=== PATIENT | male | born 1935 | race Hispanic/Latino ===

== ENCOUNTER 2017-08-07 08:17 | Observation (INO) | payer MEDICARE, MEDICAID ==
[2017-08-07 09:20] LABS: #Eosinphils 0.1 thou/uL (0.0-0.7); #Lymphocytes 1.6 thou/uL (1.20-3.40); #Monocytes 0.7 thou/uL (0.11-0.59); #Neutrophils 7.9 thou/uL (1.40-6.50); %Basophils 0.2 % (0.0-1.0); %Eosinophils 0.6 % (0.0-10.0); %Lymphocytes 15.2 % (21.0-51.0); %Monocytes 6.7 % (0.0-10.0); %Neutrophils 77.3 % (42.0-75.0); Hemoglobin 11.4 g/dL (14.0-18.0); Mean Corpuscular Hemoglobin 28.5 pg (27.0-31.0); Mean Platelet Volume 6.8 fL (7.4-10.4); Platelet Count 416 thou/uL (130-400); RBC Distribution Width 13.8 % (11.5-14.5); White Blood Cell (WBC) Count 10.2 thou/uL (4.8-10.8)
[2017-08-07] MEDS ORDERED: Morphine 4 MG/ML VIAL ONE (09:20)
[2017-08-07] MEDS ORDERED: Adacel (T-DAP) 0.5 ML VIAL ONE (09:21)
[2017-08-07 09:47] LABS: ALT (SGPT) 7 U/L (8-55); AST (SGOT) 13 U/L (5-34); Albumin 3.7 g/dL (3.4-4.8); Alcohol Less than 10 mg/dL (Less than 10); Alkaline Phosphatase 85 U/L (40-150); Anion Gap 16 mmol/L (10-20); BUN (Urea Nitrogen) 41 mg/dL (8.4-25.7); Bilirubin, Total 0.3 mg/dL (0.2-1.2); Calc. Creatinine Clearance 0 mL/min (70-130); Calcium 9.6 mg/dL (7.8-10.44); Carbon Dioxide 21 mmol/L (23-31); Chloride 103 mmol/L (98-107); Estimated GFR-MDRD 28; Globulin 4.4 g/dL (2.4-3.5); Glucose 125 mg/dL (83-110); INR-International Normal Ratio 1.1; Lipase 7 U/L (8-78); Potassium 4.3 mmol/L (3.5-5.1); Protein, Total 8.1 g/dL (5.8-8.1); Prothrombin Time 14.5 SEC (12.0-14.7); Sodium 136 mmol/L (136-145)
--- NOTE | 2017-08-07 09:54 | CT ---
CT OF THE BRAIN WITHOUT CONTRAST: Date: 08/07/17 INDICATION: History of fall with neck pain and laceration. FINDINGS: There is a right frontal scalp contusion. There is generalized cerebral and cerebellar atrophy. There is mild chronic small vessel white matter ischemic change. Septum pellucidum and third ventricle are midline. No acute infarct, hemorrhage, or hydrocephalus present. Skull appears intact. IMPRESSION: 1. Right frontal scalp contusion. 2. No acute intracranial abnormality. 3. Generalized cerebral and cerebellar atrophy, appears similar to comparison dated 10/27/14. 4. Stable mild chronic small vessel white matter ischemic change. POS: [facility]
[2017-08-07] MEDS ORDERED: Lidocaine 1% w/Epinephrine 1:100K 20 ML VIAL ONE (10:34)
--- NOTE | 2017-08-07 10:41 | CT ---
CT CERVICAL SPINE PERFORMED WITHOUT CONTRAST ENHANCEMENT: HISTORY: Neck pain status post fall. 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 There are irregular endplate changes, whic h are particularly pronounced at the C5-C6 and C6-C7 levels. Lesser changes and marked disk narrowin g are seen at C3-C4, C4-C5, and C6-C7. There is moderate anterolisthesis of C6 on C7 of 4 to 5 mm. There are marked degenerative facet changes present. In reviewing old CT of the facial bone films fr 10/27/2014, the patient had cystic change of the base of the dens and a cortical defect along the lateral margin. This is now a complete fracture of the dens, which is essentially nondisplaced. Thi s could be acute in nature, although it could have been a gradual evolution from the 2014 study, but it would have to be presumed to be related to acute trauma. IMPRESSION: 1. Fracture of the base of the dens, which is essentially nondisplaced. 2. 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 Findings telephoned to Dr. Martinez at 1000 hours. CODE CR POS: [facility]
--- NOTE | 2017-08-07 10:51 | CT ---
CT CHEST AND ABDOMEN AND PELVIS AND THORACIC SPINE AND LUMBAR SPINE PERFORMED WITH CONTRAST: HISTORY: Diffuse pain status post fall. FINDINGS: CHEST: The lungs are clear of any infiltrative process. No pneumothorax or rib fractures. Deformit y to both shoulders is consistent with some arthropathy type change with changes that would suggest b ilateral chronic rotator cuff tears. Mediastinal structures appears unremarkable. Coronary artery calcifications are seen. No mediastina l hematoma. No significant mediastinal or hilar adenopathy. ABDOMEN: The liver and spleen appear unremarkable. The pancreas shows no evidence of mass or ductal dilatation. Some questionable minimal sludge within the gallbladder. The right and left adrenal glands are normal. There is cortical atrophy and lobulation to both kidne ys. No evidence of any acute injury. The aorta is tortuous but not aneurysmal. No signs of any bow el wall injury. PELVIS: The bladder is distended. No free fluid, adenopathy, or mass. No fractures of the bony pel talon ring. THORACIC SPINE: Arthritic changes. No acute process. LUMBAR SPINE: Arthritic changes and grade 1 spondylolisthesis of L5 on S1. No acute changes. IMPRESSION: No acute findings of chest, abdomen, or pelvis. Incidental findings as noted above. Findings telephoned to Dr. Martinez at 1005 hours. CODE CR POS: [facility]
[2017-08-07 11:10] LABS: Bilirubin Negative (Negative); Blood, Urine Trace (Negative); Glucose, Urine (Dipstick) Negative (Negative); Leukocyte Negative (Negative); Nitrite Negative (Negative); Protein, Urine (Dipstick) 100 mg/dL (Neg-Trace); Urobilinogen 0.2 mg/dL (0.2-1.0)
[2017-08-07 11:13] LABS: Clarity Clear (Clear)
[2017-08-07 11:21] LABS: Bacteria/HPF None Seen HPF (None Seen); Hyaline Casts/LPF NONE SEEN LPF (0-3 Hyaline); RBC/HPF 0-3 HPF (0-3); Squamous Epithelial 0-3 HPF (0-3); WBC/HPF 0-3 HPF (0-3)
[2017-08-07] MEDS ORDERED: Dextrose 5% in Water 1,000 ML IV PRN (11:33)
[2017-08-07] MEDS ORDERED: Ondansetron ODT 4 MG TAB PO PRN (11:33)
[2017-08-07] MEDS ORDERED: Dextrose 50% Abboject 50 ML SYRINGE SLOW IVP PRN (11:33)
[2017-08-07] MEDS ORDERED: Ondansetron PF 4 MG/2 ML Vial IVP PRN (11:33)
[2017-08-07] MEDS ORDERED: ISOVUE-370 76%-LOCM 1 ML ONE (11:40)
[2017-08-07] MEDS: Acetaminophen 1,000 MG in Premix Bag 1 BAG IVPB SCH ×3 (13:22→23:20)
--- NOTE | 2017-08-07 13:23 | CON ---
DATE OF CONSULTATION: 08/07/2017 REASON FOR CONSULTATION: Odontoid fracture. HISTORY OF PRESENT ILLNESS: Mr. Ronnie Jacobs is an 81-year-old gentleman whose family is worri ed about his general state of health and safety at home who had a fall and was found down. He was br ought to the emergency department by family complaining of neck pain and CT examination revealed angu lated, but nondisplaced odontoid fracture. Previous imaging in 2014 showed a cystic degeneration of the odontoid and the fracture is through that area of weakness. Neurosurgery was consulted, but the neurological examination felt to be normal. As I meet Mr. Jacobs, he is in the general surgical floor. His daughter and other family members a re in the room with him. I speak to Mr. Jacobs. He is unaware of the day today or the month. He does not know the year. He is awake and converses. He speaks in sentences. He can carry on conversation that is appropriate. His receptive and expressive language function are normal. His cognitive function seems diminished and this is the reason causing his family to be con cerned about him chronically. His cranial nerves are working well today. He does not have any signi ficant dysmetria with alternating rapid motions. He has generalized atrophy of muscles throughout an d some generalized weakness, but no focal radicular weakness. No lateralizing weakness. There is no lateralizing loss of sensation. He has no neglect. Reflexes are brisk. PAST MEDICAL HISTORY: Hypertension, renal insufficiency, hypothyroidism. PAST SURGICAL HISTORY: Prostatectomy. MEDICATIONS: Metoprolol, levothyroxine, hydrocodone/acetaminophen, and mirtazapine. ALLERGIES: No known drug allergies. SOCIAL HISTORY: The patient lives alone. Family is worried about his living condition. He denies d rug use or smoking. He had alcohol abuse in the past. FAMILY HISTORY: There is no family history of osteoporosis in males or predisposition to fractures. REVIEW OF SYSTEMS: There is some right upper quadrant abdominal pain. There is a laceration on the forehead that has been closed. There is some forehead pain and neck pain. PHYSICAL EXAMINATION: VITAL SIGNS: Blood pressure was controlled in the emergency department. He came in with a blood pre ssure of 200, it is now 186/81, his pulse is 83, his temperature is 97.6. He is breathing 20 times a minute, satting 92% on room air. NEUROLOGIC: Ms. Jacobs's cranial nerves are intact. Visual huerta are full to confrontation. The extraocular muscles move the eyes in all directions, primary gaze without nystagmus. The face is se nsate and symmetric. Hearing is normal to finger rub bilaterally. Palate elevates in midline. The tongue protrudes in the midline. Shoulder shrug is strong. There is diffuse atrophy in various musc le groups, but has good strength against resistance. There is no lateralizing motor deficit. There is no lateralizing sensory deficit. There is no hemineglect. The reflexes are brisk. IMAGING: CT imaging of the brain is negative for hemorrhage or intracranial mass effect. CT examina tion of the cervical spine compared to the 2015 scan shows the same degenerative changes at multiple interspaces in cervical spine including 2-3 areas of spondylolisthesis resulting in some stenosis. T he new finding is that there is a fracture through the cystic degeneration of the dens at its base. This type 2 odontoid fracture is angulated posteriorly, but not translated in any degree. IMPRESSION: Type 2 odontoid fracture. PLAN: We are going to try to get this to heal without surgical intervention. Given the cystic degen eration of the odontoid, I do not believe he is a candidate for an odontoid screw at all. We are goi ng to do an operation, it would be a C1-C2 fusion, which limited his neck rotation and he would like to avoid that. We will keep him in a collar and have him come back in the office in 2 weeks for AP a nd lateral views of the cervical spine. The collar is missized. It does not fit under his chin. It is not put on appropriately. In [facility] group, it is inefficient in finding the correct collar or in teaching patient, therefore we will consult [facility] to bring a [place] J collar and a [place] collar from across the street after they have sized and they will spent time with the family teaching how to put it on and take it off. The Gila collar should be used for showers and the [place] J collar the rest of the time. I will see him in the office. During this hospitalization, please call with any new questions.
[2017-08-07 13:57] VITALS: BMI 21.7
--- NOTE | 2017-08-07 18:08 | HP ---
DATE OF ADMISSION: 08/07/2017 HISTORY OF PRESENT ILLNESS: Mr. Jacobs is an 81-year-old man who was brought to the Emergency Depa rtment by his daughter. Apparently, the patient fell from a ground level position while he was tryin g to reach out to his walker. He struck his head, but apparently suffered no loss of consciousness. He arrived to the emergency department, [place] coma scale was noted at E4, V4, M6. He was complain ing of head and neck pain. The patient was moving all extremities and following commands. Estrada wright urrently resides at an assisted living, currently with the patient's daughter. He has been falling l ately due to a progressive generalized weakness. PAST MEDICAL HISTORY: Significant for hypothyroidism, essential hypertension. SURGICAL HISTORY: Pertinent for prostatectomy. SOCIAL HISTORY: The patient has no cigarette smoking, ethanol or illicit drug abuse history. He res ides at an assisted living. PREHOSPITALIZATION MEDICATIONS: Includes duloxetine 40 mg p.o. daily, hydrocodone 7.5 mg p.o. t.i.d. , levothyroxine 50 mcg p.o. daily, metoprolol XL 25 mg p.o. b.i.d. and mirtazapine 7.5 mg p.o. at [facility]. ALLERGIES: Patient has no known drug allergies. REVIEW OF SYSTEMS: Ten point review of systems essentially unremarkable except for as stated in past medical history and chief complaint. PHYSICAL EXAMINATION: GENERAL: This reveals an 81-year-old normally developed man who is otherwise coherent and interactiv e and appears stated age. The patient appears to be in no significant acute distress at the time of my evaluation. VITAL SIGNS: Includes blood pressure 197/75, pulse 89, respiratory rate 18, temperature 98.3 degrees Fahrenheit, oxygen saturation 98% on room air. HEENT: Reveals a 3 cm right supraorbital forehead laceration which has been repaired by emergency me tere prior to my arrival. The remainder of the head is otherwise normocephalic. Pupils are equal, round, and reactive to light and accommodation. Extraocular muscles are intact bilaterally. He has no scleral icterus present. NECK: Cervical spine immobilized in a C-collar, maintaining the position due to known cervical spine injury. CHEST: Chest wall is stable. No gross deformities or step-offs present. HEART: Regular rate and rhythm, no murmurs or gallops auscultated. LUNGS: Clear to auscultation bilaterally. Breathing regular and unlabored. ABDOMEN: Soft, nontender, nondistended. Liver and spleen nonpalpable below costal margin. EXTREMITIES: Reveals 2+ radial and pedal pulses bilaterally. No ankle edema is present. NEUROLOGIC: Reveals no focal deficits present. MUSCULOSKELETAL: Reveals 4/5 muscle strength in bilateral upper and lower extremities. Thoracic and lumbar spine nontender to palpation. I have personally reviewed the CT scan of the brain which is unremarkable for any acute intracranial pathology. CT scan of the cervical spine reveals type [address] scan of the chest, abdomen, and pelvis is unremarkable for any acute intrathoracic or intraabdomin al pathology. CT scan of the thoracic and lumbar spine reveal no fractures or dislocation. CT scan of the face is unremarkable for any facial bone fractures. PERTINENT LABORATORY FINDINGS: Today includes a CBC with 10,200 white blood cells, hemoglobin 11.4, hematocrit is 35.6, platelet count is 416,000. PTT and INR noted at 37.1 seconds and 1.1 respectively. Metabolic profile: Sodium 136, potassium is 4.3, chloride is 103, bicarbonate is 21, BUN 41, creatin ine is 2.22, glucose 125. Lactic acid is 1.8, total bilirubin 0.3, AST and ALT noted at 13 and 7 res pectively. IMPRESSION: 1. Status post ground level fall. 2. A 3 cm right supraorbital forehead laceration. 3. Type 2 odontoid fracture. 4. History of essential hypertension. 5. History of hypothyroidism. PLAN: 1. Neurosurgical consultation regarding the cervical spine fracture. Cervical spine remained immobi lized in a C-collar. 2. Initiate physical and occupational therapy. 3. Case management will be asked to evaluate the patient and initiate discharge planning to include post-rehabilitation placement due to this patient's significant risk for repeated falls. The patient 's daughter who is at bedside is equally as concerned about her father's recent fall. 4. We will ask PM&R to evaluate the patient for possible inpatient rehabilitation. 5. We will monitor and control hypertension as it appears as if the patient has poorly controlled hy pertension. This may be secondary to noncompliance. 6. Above findings and plan discussed with the patient and his daughter at bedside. They both indica lexie understanding of information given.
[2017-08-07] MEDS: Famotidine 20 MG TAB PO SCH (21:59)
[2017-08-07] MEDS ORDERED: Mirtazapine 15 MG TAB PO SCH (22:30)
[2017-08-08] MEDS ORDERED: hydrALAZINE 20 MG/ML VIAL SLOW IVP PRN (03:58)
[2017-08-08] MEDS: Levothyroxine Sodium 50 MCG TAB PO SCH (06:16)
[2017-08-08] MEDS: Acetaminophen 1,000 MG in Premix Bag 1 BAG IVPB SCH ×2 (06:17→12:07)
[2017-08-08] MEDS: Tamsulosin HCl 0.4 MG CAP PO SCH (08:59)
[2017-08-08] MEDS ORDERED: Amlodipine 10 MG TAB PO SCH (09:00)
--- NOTE | 2017-08-08 11:32 | EKG ---
Test Reason : Blood Pressure : / mmHG Vent. Rate : 078 BPM Atrial Rate : 078 BPM P-R Int : 210 ms QRS Dur : 110 ms QT Int : 412 ms P-R-T Axes : 071 -44 020 degrees QTc Int : 469 ms Sinus rhythm with 1st degree A-V block Left axis deviation Minimal voltage criteria for LVH, may be normal variant Abnormal ECG Confirmed by NICOLLE Mayfield, LIONEL ([id number]), legal editor RICKEY HICKEY ([id number] on 08/08/2017 11:31:50 AM Referred By: Confirmed By:LIONEL VALVERDE M.D.
--- NOTE | 2017-08-08 14:39 | PRG ---
DATE OF SERVICE: 08/08/2017. SUBJECTIVE: This is an 81-year-old male status post mechanical fall resulting in an odontoid fracture. Hospital day 2. Neurosurgery has seen and evaluated the patient and the patient is to be treated nonoperatively at this time with a [place] J collar at all times and a [place] collar for showering. He is currently awaiting evaluation by inpatient rehabilitation, physical therapy and occupational therapy. This morning, he states his pain is controlled and he vocalized no complaint. OBJECTIVE: VITAL SIGNS: Temperature 97.5, pulse 78, respirations 16, O2 sat 98% on room air, blood pressure 123/73. GENERAL: Well-developed elderly appearing male, in no acute distress, resting in bed. HEENT: C-collar is in place. PULMONARY: Normal work of breathing. Symmetric rise. CARDIOVASCULAR: Regular rate and rhythm. GASTROINTESTINAL: Abdomen is soft, nontender, nondistended. MUSCULOSKELETAL: Moves all extremities x4. NEUROLOGIC: No focal deficit is noted. ASSESSMENT: 1. Status post mechanical fall with history of frequent falls at home or at assisted living facility. 2. Forehead laceration. 3. Odontoid fracture. 4. History of hypertension. 5. History of hypothyroidism. PLAN: Continue supportive care as ordered. Norvasc 10 mg added earlier today for SBP >180. Continue pain management as ordered. Continue to monitor. Continue PT, OT. Await evaluation from inpatient rehabilitation. Family at bedside updated on plan of care and all questions were answered. The patient was seen and evaluated with Dr. Cosby. TRAVIS
[2017-08-08] MEDS: Acetaminophen 325 MG TAB PO PRN (17:25)
[2017-08-08] MEDS: Mirtazapine 15 MG TAB PO SCH (20:22)
[2017-08-08] MEDS: Famotidine 20 MG TAB PO SCH (20:22)
[2017-08-09] MEDS ORDERED: Senokot S 8.6-50 MG TAB PO SCH (00:15)
[2017-08-09 04:43] LABS: Anion Gap 15 mmol/L (10-20); BUN (Urea Nitrogen) 43 mg/dL (8.4-25.7); Calc. Creatinine Clearance 21 mL/min (70-130); Calcium 8.8 mg/dL (7.8-10.44); Carbon Dioxide 18 mmol/L (23-31); Chloride 104 mmol/L (98-107); Estimated GFR-MDRD 27; Glucose 105 mg/dL (83-110); Magnesium 2.3 mg/dL (1.6-2.6); Phosphorus 3.6 mg/dL (2.3-4.7); Potassium 4.2 mmol/L (3.5-5.1); Sodium 133 mmol/L (136-145)
[2017-08-09] MEDS: Levothyroxine Sodium 50 MCG TAB PO SCH (05:44)
[2017-08-09] MEDS: Acetaminophen 325 MG TAB PO PRN ×2 (05:46→13:29)
[2017-08-09] MEDS ORDERED: Sodium Chloride 0.9% 500 ML IVPB SCH (07:00)
[2017-08-09] MEDS: Tamsulosin HCl 0.4 MG CAP PO SCH (08:51)
[2017-08-09] MEDS: Polyethylene Glycol 3350 17 GM Packet PO SCH (08:57)
[2017-08-09] MEDS: Senokot S 8.6-50 MG TAB PO SCH ×2 (08:59→21:56)
--- NOTE | 2017-08-09 12:10 | PRG ---
DATE OF SERVICE: 08/09/2017 SUBJECTIVE: This is an 81-year-old male status post ground level fall resulting in an odontoid fracture. This is being treated nonoperatively with a [place] J collar. He has been seen and evaluated by inpatient rehabilitation, but is awaiting bed availability. Overnight, the patient had an isolated episode of orthostatic versus vasovagal hypotension and presyncopal events. He had been started earlier in the day on Norvasc for systolic blood pressure in the 180s. Additionally, he had a low urine output overnight and received a fluid bolus. At this time, nursing staff has been asked to hold the Norvasc. Family at bedside reports that the patient has had decreased appetite. Upon my evaluation, the patient vocalized no complaints. OBJECTIVE: VITAL SIGNS: Temperature 98.2, pulse 86, respirations 14, O2 sat 98% on room air, blood pressure 146/67. GENERAL: Well-developed elderly male in no acute distress, resting in bed. HEENT: C-collar in place. PULMONARY: Normal work of breathing. Symmetric rise. CARDIOVASCULAR: Regular rate and rhythm. GASTROINTESTINAL: Abdomen is soft, nontender, nondistended. MUSCULOSKELETAL: Moves all extremities x4. NEUROLOGIC: No focal deficit noted. LABORATORY DATA: Sodium 133, potassium 4.2, chloride 104, carbon dioxide 18, BUN 43, creatinine 2.35, glucose 105, phosphorus 3.6, magnesium 2.3. ASSESSMENT: 1. Status post ground level fall with history of frequent falls. 2. Forehead laceration. 3. Odontoid fracture, nonoperative treatment at this time. 4. History of hypertension with relative hypotension and low urine output, status post additional antihypertensive. 5. History of hypothyroidism. 6. Urinary retention, present on admission. 7. Acute Kidney injury, present on admission, stable PLAN: Hold Norvasc. Fluid bolus seems to have improved urine output. Encourage p.o. intake and discussed with family at bedside. Add Ensure t.i.d. Add Megace b.i.d. Continue PT, OT. Await bed availability from inpatient rehabilitation. Flomax has been added for urinary retention. We will keep Rendon in place until the patient has Flomax for at least 2-3 days before initiating voiding trial. This will likely be done inpatient rehabilitation. Family at bedside was updated on plan of care and all questions were answered at the time of this dictation. The patient was discussed with trauma attending. TRAVIS
[2017-08-09] MEDS ORDERED: Cyclobenzaprine 10 MG TAB PO PRN (13:59)
[2017-08-09] MEDS: Megestrol Acetate 40 MG TAB PO SCH (21:56)
[2017-08-09] MEDS: Famotidine 20 MG TAB PO SCH (21:56)
[2017-08-09] MEDS: Mirtazapine 15 MG TAB PO SCH (21:57)
[2017-08-10 04:55] LABS: Anion Gap 11 mmol/L (10-20); BUN (Urea Nitrogen) 41 mg/dL (8.4-25.7); Calc. Creatinine Clearance 21 mL/min (70-130); Calcium 8.8 mg/dL (7.8-10.44); Carbon Dioxide 22 mmol/L (23-31); Chloride 105 mmol/L (98-107); Estimated GFR-MDRD 28; Glucose 106 mg/dL (83-110); Potassium 3.9 mmol/L (3.5-5.1); Sodium 134 mmol/L (136-145)
[2017-08-10] MEDS: Levothyroxine Sodium 50 MCG TAB PO SCH (05:08)
[2017-08-10] MEDS: Tamsulosin HCl 0.4 MG CAP PO SCH (08:45)
[2017-08-10] MEDS: Megestrol Acetate 40 MG TAB PO SCH (08:45)
[2017-08-10] MEDS: Senokot S 8.6-50 MG TAB PO SCH (08:46)
[2017-08-10] MEDS: Acetaminophen 325 MG TAB PO PRN (08:46)
[2017-08-10] MEDS: Polyethylene Glycol 3350 17 GM Packet PO SCH (08:46)
--- NOTE | 2017-08-10 12:50 | DIS ---
DATE OF ADMISSION: 08/07/2017 DATE OF DISCHARGE: 08/10/2017 ADMISSION DIAGNOSES: 1. Status post ground level fall. 2. Forehead laceration. 3. Odontoid fracture. 4. History of hypertension. 5. History of hypothyroidism. 6. Urinary retention status post prostatectomy. 7. Acute kidney injury on chronic kidney disease, stable. DISCHARGE DIAGNOSES: 1. Status post ground level fall. 2. Forehead laceration. 3. Odontoid fracture. 4. History of hypertension. 5. History of hypothyroidism. 6. Urinary retention status post prostatectomy. 7. Acute kidney injury on chronic kidney disease, stable. CONSULTANTS: Dr. Rosario, Neurosurgery. HOSPITAL COURSE: Ronnie Jacobs is an 81-year-old gentleman who presented to [facility] after a fall at his assisted living facility. He was evaluated and found to have the above injuries. The patient was treated nonoperatively with a C-collar per Neurosurgery recommendations. He worked with physical therapy and occupational therapy. He was evaluated by inpatient rehabilitation and accepte d for transfer on 08/10/2017. At that time, he was tolerating a general diet and was working with ph ysical therapy and pain was controlled with p.o. analgesics. Of note, upon arrival at our facility, the patient had urinary retention for which a Rendon was placed. He was started on Flomax. DISCHARGE DISPOSITION: Inpatient rehabilitation. DISCHARGE CONDITION: Fair. PHYSICAL EXAMINATION: VITAL SIGNS: Temperature 97.6, pulse 80, respirations 18, O2 saturation 98% on room air, and blood p ressure 148/68. GENERAL: Well-developed elderly male in no acute distress, resting in bed. HEENT: C-collar is in place. PULMONARY: Normal work of breathing. Symmetric rise. CARDIOVASCULAR: Regular rate and rhythm. GASTROINTESTINAL: Soft, nontender, nondistended. MUSCULOSKELETAL: Moves all extremities x4. NEUROLOGIC: No focal deficit noted. DISCHARGE INSTRUCTIONS: The patient should wear his C-collar at all times with [place] collar f or showers. He does need a voiding trial when appropriate per medical staff at the inpatient rehabil itation facility. FOLLOWUP APPOINTMENTS: The patient is to follow up with his primary care provider for hypertension, CKD and urinary retention. He should follow up with Dr. Rosario's office in approximately [address] Rosario's recommendations. He does not need to follow up with Dr. Cosby or Trauma Services formally, but may call our office with any questions. DISCHARGE MEDICATIONS: The patient was discharged on medications as documented in the electronic med ical record a list of which was provided to the accepting facility. This is merely a summary of the patient's hospitalization. For more in-depth information, please see his medical record in its entir ety.
[2017-08-10] MEDS ORDERED: Heparin 5,000 UNITS/ML VIAL SC SCH (15:00)
[2017-08-10 15:51] VITALS: BP 140/65; TEMP 98.1
== END 2017-08-10 16:15 ==
LOC: ERS 08:17 → SURG A 12:06
PROVIDERS: ADMIT Surgery; ATTEND Surgery
DX: S12.110A Anterior displaced Type II dens fracture, initial encounter for closed fracture (principal); S01.81XA Laceration without foreign body of other part of head, initial encounter; I12.9 Hypertensive chronic kidney disease with stage 1 through stage 4 chronic kidney disease, or unspecified chronic kidney disease; N18.9 Chronic kidney disease, unspecified; E03.9 Hypothyroidism, unspecified; R33.9 Retention of urine, unspecified; N17.9 Acute kidney failure, unspecified; W18.30XA Fall on same level, unspecified, initial encounter; Y99.2 Volunteer activity; Z79.899 Other long term (current) drug therapy
CPT/HCPCS: 51702; 70450; 71260; 72125; 74177; 80048 ×2; 80053; 80307; 83605; 83690; 83735; 84100; 85025; 85610; 85730; 86850; 86900; 86901; 87086; 90471; 90715; 93005; 96361; 96374; 96375 ×2; 96376 ×2; 97110 ×2; 97116; 97139 ×3; 99285; G0378 ×2; G8978; G8979; G8987; G8988; L0172; L0174; 36415; 81003; 81015; G0390; J0131; J0360; J1644; J2001; J2270; S0179

== ENCOUNTER 2017-08-14 20:32 | Inpatient (IN) | payer MEDICARE, MEDICAID ==
[2017-08-14 21:40] LABS: Hemoglobin 8.8 g/dL (14.0-18.0); Mean Corpuscular HGB CONC 32.6 g/dL (32.0-36.0); Mean Corpuscular Hemoglobin 28.6 pg (27.0-31.0); Mean Corpuscular Volume 87.8 fl (80.0-94.0); Mean Platelet Volume 7.1 fL (7.4-10.4); Platelet Count 292 thou/uL (130-400); RBC Distribution Width 14.4 % (11.5-14.5); Red Blood Cell (RBC) Count 3.08 mill/uL (4.70-6.10); White Blood Cell (WBC) Count 31.3 thou/uL (4.8-10.8)
--- NOTE | 2017-08-14 21:53 | RAD ---
CHEST ONE VIEW: 08/14/17 HISTORY: Altered mental status. FINDINGS: Enlarged cardiac silhouette. Atherosclerosis of the aorta. Pulmonary vessels and hilum are normal. Co stophrenic angles are clear. Patchy interstitial opacities are presumed to be chronic. Left lower lob e infiltrate cannot be completely excluded. There is no pneumothorax. There are degenerative changes in both shoulders. Possible calcified lymph node in the left axilla. Chronic changes involving the di stal left and right clavicle are noted. IMPRESSION: Possible left lower lobe infiltrate. Atherosclerosis. Continued surveillance. POS: [facility]
[2017-08-14 21:55] LABS: Anion Gap 17 mmol/L (10-20); BUN (Urea Nitrogen) 54 mg/dL (8.4-25.7); Calc. Creatinine Clearance 0 mL/min (70-130); Calcium 8.8 mg/dL (7.8-10.44); Carbon Dioxide 20 mmol/L (23-31); Chloride 101 mmol/L (98-107); Estimated GFR-MDRD 20; Glucose 109 mg/dL (83-110); Potassium 5.2 mmol/L (3.5-5.1); Sodium 133 mmol/L (136-145)
[2017-08-14 21:56] LABS: Lymphocytes 4 % (21-51); MDiff Complete? YES; Monocytes 7 % (0-10); Neutrophil 89 % (42-75)
[2017-08-14 21:59] LABS: Bilirubin Small (Negative); Blood, Urine Large (Negative); Clarity TURBID (Clear); Glucose, Urine (Dipstick) Negative (Negative); Leukocyte Large (Negative); Nitrite Positive (Negative); Protein, Urine (Dipstick) 300 mg/dL (Neg-Trace); Specific Gravity, Urine 1.018 (1.002-1.036); Urobilinogen 0.2 mg/dL (0.2-1.0)
[2017-08-14 22:01] LABS: Bacteria/HPF None Seen HPF (None Seen); Hyaline Casts/LPF 0-3 HYALINE CAST LPF (0-3 Hyaline); Pathc Cast-AUWi Flag 0.98 (0-2.49); Squamous Epithelial 0-3 HPF (0-3)
[2017-08-14 22:02] LABS: Yeast-AUWi Flag 76.2 (0-25.0)
[2017-08-14 22:08] LABS: RBC/HPF 21-50 HPF (0-3); Yeast-All Forms None Seen HPF (None Seen)
[2017-08-14 22:56] LABS: ALT (SGPT) Less than 7 U/L (8-55); AST (SGOT) 18 U/L (5-34); Albumin 3.2 g/dL (3.4-4.8); Alkaline Phosphatase 67 U/L (40-150); Bilirubin, Direct 0.2 mg/dL (0.1-0.3); Bilirubin, Total 0.4 mg/dL (0.2-1.2); Protein, Total 6.1 g/dL (5.8-8.1)
--- NOTE | 2017-08-14 22:57 | CT ---
CT ABDOMEN WITHOUT CONTRAST CT PELVIS WITHOUT CONTRAST 08/14/17 HISTORY: Altered mental status. COMPARISON: 08/07/17 HISTORY: Elevated white blood cell count. Evaluate for possible occult fever or infection. TECHNIQUE: Abdomen and pelvic CT are performed without IV or oral contrast. Coronal reformatted images are submi tted for interpretation. FINDINGS: ABDOMEN CT: Chronic changes in the lung bases. Heart is enlarged. There is coronary artery calcifications. Athero sclerosis of the aorta and calcification of the mitral valve are noted. Limited evaluation of the solid organs due to lack of IV contrast. Grossly no solid organ abnormality . Unremarkable gallbladder. Atrophy of the head of the pancreas. A stable appearance of the kidneys. No obstructive uropathy. No mesenteric mass, lymphadenopathy, free air or free fluid. Limited evaluation of the alimentary canal due to lack of oral contrast. No evidence of bowel obstruc tion. Ileocecal junction is normal. Colon is unremarkable. There is diverticulosis. No diverticulitis . PELVIC CT: Urinary bladder is decompressed by Rendon catheterization. No pelvic mass, lymphadenopathy, free air o f free fluid. Stable chronic appearance of the lumbar spine. No acute fractures or identified. IMPRESSION: Limited evaluation due to lack of IV and oral contrast and due to motion degradation. No obvious acut e abnormality in the abdomen or pelvis. POS: [facility]
[2017-08-14] MEDS ORDERED: cefTRIAXone\\ROCEPHIN 1 GM VIAL ONE (23:32)
[2017-08-15] MEDS ORDERED: Levofloxacin 500 mg/D5W 100 ml Premix Bag ONE (00:13)
[2017-08-15] MEDS ORDERED: Ondansetron HCl/PF 4 MG/2 ML Vial IVP PRN ×2 (00:48→06:51)
[2017-08-15] MEDS ORDERED: Ondansetron ODT 4 MG TAB SL PRN (00:48)
[2017-08-15 01:40] VITALS: BMI 22.2
[2017-08-15] MEDS ORDERED: Vancomycin HCl 1 GM in Premix Bag 1 BAG IVPB SCH (03:00)
[2017-08-15] MEDS: Acetaminophen 325 MG TAB PO PRN ×2 (03:33→18:20)
[2017-08-15] MEDS ORDERED: Chloraseptic Spray 180 ml Bottle PO PRN (06:51)
[2017-08-15] MEDS ORDERED: Sodium Chloride 0.65% Nasal 44 ML BOT EA NARE PRN (06:51)
[2017-08-15] MEDS ORDERED: Bisacodyl 10 MG SUPP PR PRN (06:51)
[2017-08-15] MEDS ORDERED: Mag-Al 1200 mg/1200 mg/30 ML UDCUP PO PRN (06:51)
[2017-08-15] MEDS ORDERED: Senokot 8.6 MG TAB PO PRN (06:51)
[2017-08-15] MEDS ORDERED: Artificial Tears 18 DROP/0.9 ML EA EYE PRN (06:51)
[2017-08-15] MEDS ORDERED: Ondansetron ODT 4 MG TAB PO PRN (06:51)
[2017-08-15] MEDS ORDERED: Milk Of Magnesia 30 ML UDCUP PO PRN (06:51)
[2017-08-15] MEDS ORDERED: Diabetic Tussin 200 MG/10 ML UDCUP PO PRN (06:51)
[2017-08-15] MEDS ORDERED: hydrALAZINE 20 MG/ML VIAL SLOW IVP PRN (06:51)
[2017-08-15] MEDS ORDERED: Loratadine 10 MG TAB PO PRN (06:51)
[2017-08-15] MEDS ORDERED: Loperamide HCl 2 MG CAP PO PRN (06:51)
[2017-08-15] MEDS ORDERED: Eucerin (Mineral Oil/Petrolatum,White) 30 gm Jar TOP PRN (06:51)
[2017-08-15] MEDS ORDERED: Cyclobenzaprine 10 MG TAB PO PRN (06:53)
[2017-08-15] MEDS: HYDROcodone/Acetaminophen 5/325 mg Tablet PO PRN ×3 (07:48→21:51)
[2017-08-15] MEDS: Senokot S 8.6-50 MG TAB PO SCH ×2 (07:49→21:39)
[2017-08-15] MEDS: Megestrol Acetate 40 MG TAB PO SCH ×2 (07:49→21:38)
[2017-08-15] MEDS: Saccharomyces boulardii 250 MG CAP PO SCH (07:49)
[2017-08-15] MEDS: Tamsulosin HCl 0.4 MG CAP PO SCH (07:49)
[2017-08-15] MEDS: Famotidine 20 MG TAB PO SCH (07:49)
[2017-08-15] MEDS: Heparin 5,000 UNITS/ML VIAL SC SCH ×2 (07:50→21:38)
[2017-08-15] MEDS: Sodium Chloride 0.9% 1,000 ML IV SCH ×2 (08:08→21:33)
--- NOTE | 2017-08-15 10:00 | PDOC.EVN ---
Event Note - Event Note Event Note: pt seen and examined bedside, discussed with family, he has acute encephalopathy, acute on chronic kidney failure, dehydration and UTI due to collado catheter. order placed and [facility] to follow
--- NOTE | 2017-08-15 11:25 | HP ---
PRIMARY CARE PHYSICIAN: Dr. Selene Huertas. REASON FOR ADMISSION: [facility] status. HISTORY OF PRESENT ILLNESS: An 81-year-old male who has history of hypertension, hypothyroi dism, benign enlargement of prostate, senile dementia as well as anxiety and depression who was recen tly admitted in our hospital on 08/07/2017. The patient was living by himself at [facility] [place] where he had mechanical fall and he injured his right side of scalp required sutur ing in the emergency room. His CT brain was negative for any acute intracranial process other than s calp contusion. He had a CT chest, abdomen and pelvis which was also negative for any acute traumati c injury and CT cervical spine showed degenerative spine disease with dens fracture, which was nondis placed, required cervical collar. During that admission, the patient was admitted under trauma team. Neurosurgeon evaluated this patient and eventually this patient was [facility]. The patient was getting confused for the last 2-3 days and patient was not able to eat or drink well enough at rehab. When the patient's daughter visited him the day before yesterday and at that time, the patient appeared completely altered. The patient was not able to recognize her, as well as other family member. He was shouting and he appeared in distress and that is why family member called par amedics and subsequently after approval from [facility] rehabilitation, the patient was transfe rred to ER. In the emergency room, this patient had routine blood test, which showed leukocytosis with a left alisha ft and the patient appeared to be dehydrated with acute on chronic kidney failure, hyponatremia, and hyperkalemia. His urinalysis was consistent with urinary tract infection. This patient had a Rendon catheter placed when he was admitted previously on 08/07/2017 and since then he has same Rendon cathet er. Unfortunately, the patient is not able to provide any history because of his completely altered, delu sional and encephalopathic. The patient's daughter is present at bedside who provided most of the hi story. REVIEW OF SYSTEMS: All review of systems tried to review with the patient, but unable to review dayami use of altered mental status and encephalopathy. ALLERGIES: No known drug allergy. CURRENT HOME MEDICATIONS: Flexeril 5 mg q.8 hours p.r.n., Cymbalta 40 mg p.o. daily, Pepcid 20 mg da ciarra, Synthroid 50 mcg p.o. daily, Megace 40 mg p.o. b.i.d., Toprol-XL 25 mg p.o. b.i.d., Remeron 7.5 mg p.o. at bedtime, Flomax 0.4 mg p.o. daily. PAST MEDICAL HISTORY: Senile dementia of Alzheimer's type, chronic kidney disease stage 3, hypertens ion, hypothyroidism, recent admission for a dens fracture, cervical spine arthritis. PAST SURGICAL HISTORY: Prostatectomy. PAST PSYCHIATRIC HISTORY: Anxiety and depression. SOCIAL HISTORY: Patient currently from [facility]. Previously, he was living at [facility]. Subsequently, the patient was living at her daughter's home. No history of to bacco, alcohol or illicit drug abuse at this point, but he has prior history of alcohol abuse. FAMILY HISTORY: No strong family history of premature coronary artery disease, stroke or cancer as p er patient's daughter. EMERGENCY ROOM COURSE: Patient was given Rocephin 1 gram, Levaquin 500 mg, and IV fluid. PHYSICAL EXAMINATION: VITAL SIGNS: On arrival, blood pressure 131/59, pulse 93, respiratory rate 20, temperature 98.0, sat uration 94% on room air, weight 77.1 kilograms. GENERAL: The patient is currently confused, delusional, no obvious acute distress. HEENT: Head is normocephalic. The patient does have suturing over scalp laceration on the right for ehead. Eyes: Pupils round, reactive to light. Extraocular muscle intact. No nystagmus. ENT: Orop harynx within normal limits, although dry mucous membranes. No pharyngeal erythema, no exudate. NECK: Cervical collar in place. No gross JVD noted. Range of motion is not tested because of recen t dens fracture. LUNGS: Clear to auscultation without any rhonchi or rales. CARDIAC: S1, S2 regular. No murmur, no gallop, no rub. ABDOMEN: Soft, bowel sounds present, nontender, nondistended. No organomegaly, no mass. Mild supra pubic discomfort noted. BACK: Examination unremarkable. No CVA tenderness. GENITALIA: Rendon catheter in place. EXTREMITIES: No edema. Good peripheral pulsation. NEUROLOGIC: He is moving all four limbs, but detailed neurological examination is not possible becau se the patient is uncooperative and encephalopathic. PSYCHIATRIC: Unable to assess at this point. SIGNIFICANT LABORATORY DATA: CBC: WBC 31.3, hemoglobin 8.8, platelet 292 with left shift. BMP: So dium 133, potassium 5.2, chloride 101, carbon dioxide 28, BUN 54, creatinine 3.04, glucose of 109, ca lcium 8.8. Lactic acid 1.2. LFT: Bilirubin 0.2, AST 18, ALT less than 7, alkaline phosphatase 67, albumin 3.2, lipase 8. Urinalysis suggestive of urinary tract infection. ASSESSMENT AND PLAN: 1. Acute metabolic encephalopathy. At this point, the patient clinically has urinary tract infectio n as well as acute on chronic kidney failure and dehydration. We will try to correct this underlying treatable cause and monitor his neurological status. If the patient improves from altered mental st atus with this treatment, then culprit would be the underlying etiology, but if he still remains conf used and delirious, then probably dementia with delirium. He does not have any focal neurological de ficit at this point. 2. Acute on chronic kidney failure, baseline chronic kidney disease stage 3. The patient appears cl inically dehydrated. He will be given IV fluid with NS and we will monitor renal function. We will avoid nephrotoxin agent. 3. Hyperkalemia, likely due to metabolic acidosis and renal insufficiency. We will repeat BMP tomor row. 4. Hyponatremia, likely due to dehydration. We will work and give him with NS at 100 mL per hour an d will repeat BMP tomorrow. 5. Sepsis with acute organ dysfunction. He is having encephalopathy, acute kidney failure with sour ce of infection is urinary tract which is related with chronic indwelling Rendon catheter. The patien t is on appropriate vancomycin, Rocephin, and Levaquin therapy. We will follow up on culture result and change antibiotic therapy accordingly. 6. Urinary tract infection related with indwelling Rendon catheter, which was placed during previous admission. We will follow up on urine culture result. Patient is kept on vancomycin, Rocephin, and Levaquin. 7. Recent dens fracture of cervical spine with routine healing. [facility]. He was evaluated by neurosurgeon during previous admission. 8. Alzheimer's dementia. Patient will need supportive care. The patient's daughter does not want t o send him back to rehab versus senior care home rather she wants to take him home with home [facility] th. 9. Degenerative joint disease of cervical spine, supportive care. 10. Hypothyroidism. Continue Synthroid 50 mcg p.o. daily. 11. Anxiety and depression. Continue Cymbalta 40 mg p.o. daily. 12. Deep venous thrombosis prophylaxis, heparin 5000 units subcu twice daily. 13. Gastrointestinal prophylaxis. Pepcid 20 mg p.o. daily. 14. Hypertension. If blood pressure permits, then we will resume Toprol-XL 25 mg p.o. b.i.d. 15. B enign enlargement of prostate with history of prostatectomy. Continue Flomax 0.4 mg p.o. daily. CODE STATUS: The patient is DNR. Patient's daughter is surrogate decision maker. Code status confi rmed with the patient's daughter. DISPOSITION AND PLAN: Most likely the patient will go to the patient's daughter's home with home [facility] when stable. Plan of care discussed with the patient's daughter and other family member at bedside.
[2017-08-15] MEDS: Mirtazapine 15 MG TAB PO SCH (21:39)
[2017-08-16 02:06] LABS: #Eosinphils 0.1 thou/uL (0.0-0.7); #Lymphocytes 1.7 thou/uL (1.20-3.40); #Monocytes 1.4 thou/uL (0.11-0.59); #Neutrophils 20.8 thou/uL (1.40-6.50); %Basophils 0.2 % (0.0-1.0); %Eosinophils 0.6 % (0.0-10.0); %Lymphocytes 7.2 % (21.0-51.0); %Monocytes 5.8 % (0.0-10.0); %Neutrophils 86.3 % (42.0-75.0); Hemoglobin 8.2 g/dL (14.0-18.0); Mean Corpuscular HGB CONC 32.5 g/dL (32.0-36.0); Mean Corpuscular Hemoglobin 29.1 pg (27.0-31.0); Mean Corpuscular Volume 89.3 fl (80.0-94.0); Mean Platelet Volume 7.1 fL (7.4-10.4); Platelet Count 260 thou/uL (130-400); RBC Distribution Width 14.4 % (11.5-14.5); Red Blood Cell (RBC) Count 2.83 mill/uL (4.70-6.10); White Blood Cell (WBC) Count 24.1 thou/uL (4.8-10.8)
[2017-08-16 02:45] LABS: Albumin 2.9 g/dL (3.4-4.8); Anion Gap 14 mmol/L (10-20); BUN (Urea Nitrogen) 49 mg/dL (8.4-25.7); BUN/Creatinine Ratio 17.19; Calc. Creatinine Clearance 16 mL/min (70-130); Calcium 8.5 mg/dL (7.8-10.44); Carbon Dioxide 19 mmol/L (23-31); Chloride 108 mmol/L (98-107); Estimated GFR-MDRD 21; Glucose 86 mg/dL (83-110); Phosphorus 3.1 mg/dL (2.3-4.7); Potassium 4.6 mmol/L (3.5-5.1); Sodium 136 mmol/L (136-145)
[2017-08-16] MEDS ORDERED: Vancomycin HCl 500 MG in Sodium Chloride 0.9% 100 ML IVPB SCH (03:00)
[2017-08-16] MEDS: Levothyroxine Sodium 50 MCG TAB PO SCH (05:49)
[2017-08-16] MEDS: Acetaminophen 325 MG TAB PO PRN ×2 (05:55→15:26)
[2017-08-16] MEDS: Saccharomyces boulardii 250 MG CAP PO SCH (08:45)
[2017-08-16] MEDS: Senokot S 8.6-50 MG TAB PO SCH ×2 (08:45→20:27)
[2017-08-16] MEDS: Famotidine 20 MG TAB PO SCH (08:45)
[2017-08-16] MEDS: Heparin 5,000 UNITS/ML VIAL SC SCH ×2 (08:45→20:26)
[2017-08-16] MEDS: Tamsulosin HCl 0.4 MG CAP PO SCH (08:45)
[2017-08-16] MEDS: Megestrol Acetate 40 MG TAB PO SCH ×2 (08:45→20:26)
--- NOTE | 2017-08-16 09:43 | PDOC.PN ---
- Subjective Encounter Start Date: 08/16/17 Encounter Start Time: 09:10 -: old records requested/rev Patient seen and examined for sepsis. No new complaints. No overnight events today he is more coherent, slept well, now eating - Objective Resuscitation Status: Resuscitation Status DNR:Do Not Resuscitate MAR Reviewed: Yes Vital Signs & Weight: Vital Signs (12 hours) Temp Pulse Resp BP Pulse Ox 08/16/17 08:00 97.9 F 99 20 148/64 H 96 08/16/17 04:00 98.4 F 98 18 152/66 H 95 I&O: 08/15/17 08/16/17 08/17/17 06:59 06:59 06:59 Intake Total 290 2010 Output Total 150 1100 Balance 140 910 Result Diagrams: 08/16/17 01:59 08/16/17 01:59 Phys Exam - Physical Examination Constitutional: NAD HEENT: PERRLA, moist MMs, sclera anicteric Neck: no nodes, no JVD, supple, full ROM cervical collar+ Respiratory: no wheezing, no rales, no rhonchi Cardiovascular: RRR, no significant murmur, no rub Gastrointestinal: soft, non-tender, no distention, positive bowel sounds Musculoskeletal: no edema, pulses present Neurological: moves all 4 limbs Lymphatic: no nodes Psychiatric: normal affect Skin: no rash, normal turgor Dx/Plan (1) Acute worsening of stage 3 chronic kidney disease Code(s): N18.3 - CHRONIC KIDNEY DISEASE, STAGE 3 (MODERATE) Status: Acute (2) Dens fracture with routine healing Code(s): S12.100D - UNSP DISP FX OF 2ND CERVCAL VERT, SUBS FOR FX W ROUTN HEAL Status: Acute (3) Encephalopathy acute Code(s): G93.40 - ENCEPHALOPATHY, UNSPECIFIED Status: Acute (4) Hyperkalemia Code(s): E87.5 - HYPERKALEMIA Status: Acute (5) Hyponatremia Code(s): E87.1 - HYPO-OSMOLALITY AND HYPONATREMIA Status: Acute (6) Physical deconditioning Code(s): R53.81 - OTHER MALAISE Status: Acute (7) Sepsis with acute organ dysfunction Code(s): A41.9 - SEPSIS, UNSPECIFIED ORGANISM; R65.20 - SEVERE SEPSIS WITHOUT SEPTIC SHOCK Status: Acute (8) UTI (urinary tract infection) Status: Acute (9) Anemia, normocytic normochromic Code(s): D64.9 - ANEMIA, UNSPECIFIED Status: Chronic (10) Anxiety and depression Code(s): F41.9 - ANXIETY DISORDER, UNSPECIFIED; F32.9 - MAJOR DEPRESSIVE DISORDER, SINGLE EPISODE, UNSPECIFIED Status: Chronic (11) DJD (degenerative joint disease) of cervical spine Code(s): M47.812 - SPONDYLOSIS W/O MYELOPATHY OR RADICULOPATHY, CERVICAL REGION Status: Chronic (12) Dementia Code(s): F03.90 - UNSPECIFIED DEMENTIA WITHOUT BEHAVIORAL DISTURBANCE Status: Chronic (13) H/O prostatectomy Code(s): Z90.79 - ACQUIRED ABSENCE OF OTHER GENITAL ORGAN(S) Status: Chronic (14) Hypothyroidism Code(s): E03.9 - HYPOTHYROIDISM, UNSPECIFIED Status: Chronic - Plan cont current plan of care, plan discussed w/ family, continue antibiotics, PT/OT * continue rocephin, levaquin and vancomycin * follow culture * continue IVF * discussed with family * pt is improving * medication reviewed as below * symptomatic treatment. Review of Systems - Review of Systems Constitutional: weakness. negative: fever, chills, sweats, malaise, other ENT: negative: Ear Pain, Ear Discharge, Nose Pain, Nose Discharge, Nose Congestion, Mouth Pain, Mouth Swelling, Throat Pain, Throat Swelling, Other Respiratory: negative: Cough, Dry, Shortness of Breath, Hemoptysis, SOB with Excertion, Pleuritic Pain, Sputum, Wheezing Cardiovascular: negative: chest pain, palpitations, orthopnea, paroxysmal nocturnal dyspnea, edema, light headedness, other Gastrointestinal: negative: Nausea, Vomiting, Abdominal Pain, Diarrhea, Constipation, Melena, Hematochezia, Other Genitourinary: negative: Dysuria, Frequency, Incontinence, Hematuria, Retention , Other Musculoskeletal: negative: Neck Pain, Shoulder Pain, Arm Pain, Back Pain, Hand Pain, Leg Pain, Foot Pain, Other Skin: negative: Rash, Lesions, Tim, Bruising, Other - Medications/Allergies Allergies/Adverse Reactions: Allergies Allergy/AdvReac Type Severity Reaction Status Date / Time No Known Allergies Allergy Unverified 08/07/17 12:08 Medications: Current Medications Acetaminophen (Tylenol) 650 mg PO Q4H PRN PRN Reason: Headache/Fever or MIld Pain Last Admin: 08/16/17 05:55 Dose: 650 mg Hydrocodone Bitart/Acetaminophen ([place] 5/325) 1 tab PO Q4H PRN PRN Reason: Moderate Pain (4-6) Last Admin: 08/15/17 21:51 Dose: 1 tab Al Hydroxide/Mg Hydroxide (Maalox) 30 ml PO Q6H PRN PRN Reason: Heartburn or Indigestion Artificial Tears (Tears Naturale) 0 drop EA EYE PRN PRN PRN Reason: Dry Eyes Bisacodyl (Dulcolax) 10 mg CA Q24H PRN PRN Reason: Constipation Cyclobenzaprine HCl (Flexeril) 5 mg PO Q8H PRN PRN Reason: Muscle Spasm Duloxetine HCl (Cymbalta) 40 mg PO DAILY [facility] Last Admin: 08/16/17 08:48 Dose: Not Given Famotidine (Pepcid) 20 mg PO DAILY [facility] Last Admin: 08/16/17 08:45 Dose: 20 mg Guaifenesin (Robitussin Sf) 200 mg PO Q4H PRN PRN Reason: Cough Heparin Sodium (Porcine) (Heparin) 5,000 units SC BID [facility] Last Admin: 08/16/17 08:45 Dose: 5,000 units Hydralazine HCl (Apresoline) 10 mg SLOW IVP Q4H PRN PRN Reason: Systolic BP > 180 Sodium Chloride (Normal Saline 0.9%) 1,000 mls @ 70 mls/hr IV .[id number] [facility] Last Admin: 08/15/17 21:33 Dose: 1,000 mls Vancomycin HCl 500 mg/ Sodium (Chloride) 100 mls @ 100 mls/hr IVPB Q2D [facility] Last Admin: 08/16/17 03:10 Dose: 100 mls Levothyroxine Sodium (Synthroid) 50 mcg PO 0600 [facility] Last Admin: 08/16/17 05:49 Dose: 50 mcg Loperamide HCl (Imodium) 2 mg PO PRN PRN PRN Reason: Diarrhea/Loose Stools Loratadine (Claritin) 10 mg PO DAILYPRN PRN PRN Reason: Sinus Symptoms Magnesium Hydroxide (Milk Of Magnesium) 30 ml PO DAILYPRN PRN PRN Reason: Constipation Megestrol Acetate (Megace) 40 mg PO BID [facility] Last Admin: 08/16/17 08:45 Dose: 40 mg Mineral Oil/White Petrolatum (Eucerin Cream) 0 gm TOP BIDPRN PRN PRN Reason: Dry Skin Mirtazapine (Remeron) 7.5 mg PO HS [facility] Last Admin: 08/15/17 21:39 Dose: 7.5 mg Miscellaneous Medication (Pharmacy To Dose) 1 each IVPB ONE PRN PRN Reason: Pharmacy to dose Stop: 08/25/17 02:20 Ondansetron HCl (Zofran Odt) 4 mg PO Q6H PRN PRN Reason: Nausea/Vomiting Ondansetron HCl (Zofran) 4 mg IVP Q6H PRN PRN Reason: Nausea/Vomiting Phenol (Chloraseptic [place] 180 Ml Bot) 0 ml PO PRN PRN PRN Reason: Sore Throat Saccharomyces Boulardii (Florastor) 250 mg PO DAILY [facility] Last Admin: 08/16/17 08:45 Dose: 250 mg Senna (Senokot) 2 tab PO HSPRN PRN PRN Reason: Constipation Senna/Docusate Sodium (Senokot S) 2 tab PO BID [facility] Last Admin: 08/16/17 08:45 Dose: 2 tab Sodium Chloride ([place] Nasal [place] 0.65%) 0 ml EA NARE QIDPRN PRN PRN Reason: Nasal Congestion Tamsulosin HCl (Flomax) 0.4 mg PO DAILY [facility] Last Admin: 08/16/17 08:45 Dose: 0.4 mg
[2017-08-16] MEDS: Sodium Chloride 0.9% 1,000 ML IV SCH ×2 (10:43→23:54)
[2017-08-16] MEDS: cefTRIAXone\\ROCEPHIN 1 GM in Sodium Chloride 0.9% 100 ML IVPB SCH (10:43)
[2017-08-16] MEDS: HYDROcodone/Acetaminophen 5/325 mg Tablet PO PRN (12:44)
[2017-08-16] MEDS: Mirtazapine 15 MG TAB PO SCH (20:27)
[2017-08-17] MEDS: HYDROcodone/Acetaminophen 5/325 mg Tablet PO PRN ×2 (00:49→13:33)
[2017-08-17 01:59] LABS: #Basophils 0.1 thou/uL (0.0-0.2); #Eosinphils 0.2 thou/uL (0.0-0.7); #Lymphocytes 1.3 thou/uL (1.20-3.40); #Neutrophils 12.5 thou/uL (1.40-6.50); %Basophils 0.3 % (0.0-1.0); %Eosinophils 1.1 % (0.0-10.0); %Lymphocytes 8.7 % (21.0-51.0); %Monocytes 6.6 % (0.0-10.0); %Neutrophils 83.3 % (42.0-75.0); Hemoglobin 8.5 g/dL (14.0-18.0); Mean Corpuscular HGB CONC 32.6 g/dL (32.0-36.0); Mean Corpuscular Hemoglobin 29.1 pg (27.0-31.0); Mean Corpuscular Volume 89.2 fl (80.0-94.0); Mean Platelet Volume 6.5 fL (7.4-10.4); Platelet Count 277 thou/uL (130-400); RBC Distribution Width 14.3 % (11.5-14.5); Red Blood Cell (RBC) Count 2.93 mill/uL (4.70-6.10)
[2017-08-17 02:17] LABS: Vancomycin, Trough 15.5 ug/mL
[2017-08-17 02:37] LABS: Albumin 2.8 g/dL (3.4-4.8); Anion Gap 16 mmol/L (10-20); BUN (Urea Nitrogen) 39 mg/dL (8.4-25.7); BUN/Creatinine Ratio 15.29; Calc. Creatinine Clearance 18 mL/min (70-130); Calcium 8.9 mg/dL (7.8-10.44); Carbon Dioxide 17 mmol/L (23-31); Chloride 110 mmol/L (98-107); Estimated GFR-MDRD 24; Glucose 81 mg/dL (83-110); Phosphorus 2.7 mg/dL (2.3-4.7); Potassium 4.1 mmol/L (3.5-5.1); Sodium 139 mmol/L (136-145)
[2017-08-17] MEDS ORDERED: Vancomycin HCl 500 MG in Sodium Chloride 0.9% 100 ML IVPB SCH (03:00)
[2017-08-17] MEDS ORDERED: Labetalol 100 MG/20 ML MDV SLOW IVP SCH (06:00)
[2017-08-17 06:13] LABS: ALT (SGPT) 7 U/L (8-55); AST (SGOT) 18 U/L (5-34); Albumin 3.2 g/dL (3.4-4.8); Alkaline Phosphatase 75 U/L (40-150); Anion Gap 18 mmol/L (10-20); BUN (Urea Nitrogen) 38 mg/dL (8.4-25.7); Bilirubin, Total 0.3 mg/dL (0.2-1.2); Calc. Creatinine Clearance 18 mL/min (70-130); Calcium 8.8 mg/dL (7.8-10.44); Carbon Dioxide 16 mmol/L (23-31); Chloride 110 mmol/L (98-107); Estimated GFR-MDRD 24; Globulin 3.1 g/dL (2.4-3.5); Glucose 94 mg/dL (83-110); Potassium 4.3 mmol/L (3.5-5.1); Protein, Total 6.3 g/dL (5.8-8.1); Sodium 140 mmol/L (136-145)
[2017-08-17 06:16] LABS: Troponin I 0.075 ng/mL (< 0.028)
[2017-08-17] MEDS: Levothyroxine Sodium 50 MCG TAB PO SCH (06:25)
--- NOTE | 2017-08-17 07:44 | RAD ---
CHEST 1 VIEW: HISTORY: Respiratory distress. COMPARISON: 08/14/17. FINDINGS: Cardiac silhouette magnified and upper limits of normal in size. Pulmonary vasculature is now slight ly engorged. Increase in patchy bibasilar infiltrates, left greater than right. Mediastinum midline with aortic calcification. Defibrillator patchy overlies the right mediastinum. No evidence of pne umothorax. Prominent degenerative changes right shoulder. IMPRESSION: 1. Pulmonary vascular congestion. 2. Increasing infiltrate left lung base. Clinical correlation regarding other signs and symptoms of left basilar pneumonitis is required. Continued radiographic followup suggested. POS: [facility]
--- NOTE | 2017-08-17 08:34 | PDOC.PN ---
- Subjective Encounter Start Date: 08/17/17 Encounter Start Time: 07:20 last night pt had code green, as he was having dyspnea and respi distress, no chest pain he moved to [facility], he has tachycardia and tachypnea - Objective Resuscitation Status: Resuscitation Status DNR:Do Not Resuscitate MAR Reviewed: Yes Vital Signs & Weight: Vital Signs (12 hours) Temp Pulse Pulse Pulse Pulse Pulse Pulse 08/17/17 07:42 99 F 99 08/17/17 06:05 99 08/17/17 05:25 160 H 138 H 161 H 162 H 121 H 08/17/17 00:35 97.3 F L 104 H Pulse Pulse Pulse Resp Resp Resp Resp 08/17/17 07:42 18 08/17/17 06:05 22 H 08/17/17 05:25 120 H 110 H 107 H 24 H 20 28 H 08/17/17 00:35 18 Resp Resp Resp Resp Resp BP BP 08/17/17 07:42 08/17/17 06:05 08/17/17 05:25 24 H 20 20 24 H 20 177/79 H 197/105 H 08/17/17 00:35 BP BP BP BP BP BP BP 08/17/17 07:42 154/71 H 08/17/17 06:05 135/71 08/17/17 05:25 197/92 H 179/94 H 182/87 H 162/82 H 139/74 138/81 08/17/17 00:35 177/79 H Pulse Ox Pulse Ox Pulse Ox Pulse Ox Pulse Ox Pulse Ox Pulse Ox 08/17/17 07:42 100 08/17/17 06:05 100 08/17/17 05:25 100 100 100 100 100 100 08/17/17 00:35 98 Pulse Ox Pulse Ox 08/17/17 07:42 08/17/17 06:05 08/17/17 05:25 100 100 08/17/17 00:35 I&O: 08/16/17 08/17/17 08/18/17 06:59 06:59 06:59 Intake Total 2009 1152 Output Total 1100 900 Balance 910 252 Result Diagrams: 08/17/17 01:52 08/17/17 05:53 Additional Labs: Accuchecks 08/17/17 05:31 POC Glucose 102 Radiology Reviewed by me: Yes (chest xray-congestion lll pneumonia) EKG Reviewed by me: Yes (tachycardia) Phys Exam - Physical Examination Constitutional: NAD HEENT: PERRLA, sclera anicteric Neck: no JVD, supple cervical collar Respiratory: wheezing present left base rales Cardiovascular: RRR, no significant murmur, no rub tachycardia Gastrointestinal: soft, non-tender, no distention, positive bowel sounds Musculoskeletal: no edema, pulses present Neurological: moves all 4 limbs Lymphatic: no nodes Psychiatric: normal affect Skin: no rash, normal turgor Dx/Plan (1) Acute worsening of stage 3 chronic kidney disease Code(s): N18.3 - CHRONIC KIDNEY DISEASE, STAGE 3 (MODERATE) Status: Acute (2) Dens fracture with routine healing Code(s): S12.100D - UNSP DISP FX OF 2ND CERVCAL VERT, SUBS FOR FX W ROUTN HEAL Status: Acute (3) Encephalopathy acute Code(s): G93.40 - ENCEPHALOPATHY, UNSPECIFIED Status: Acute (4) Hyperkalemia Code(s): E87.5 - HYPERKALEMIA Status: Acute (5) Hyponatremia Code(s): E87.1 - HYPO-OSMOLALITY AND HYPONATREMIA Status: Acute (6) Physical deconditioning Code(s): R53.81 - OTHER MALAISE Status: Acute (7) Sepsis with acute organ dysfunction Code(s): A41.9 - SEPSIS, UNSPECIFIED ORGANISM; R65.20 - SEVERE SEPSIS WITHOUT SEPTIC SHOCK Status: Acute (8) UTI (urinary tract infection) Status: Acute (9) Anemia, normocytic normochromic Code(s): D64.9 - ANEMIA, UNSPECIFIED Status: Chronic (10) Anxiety and depression Code(s): F41.9 - ANXIETY DISORDER, UNSPECIFIED; F32.9 - MAJOR DEPRESSIVE DISORDER, SINGLE EPISODE, UNSPECIFIED Status: Chronic (11) DJD (degenerative joint disease) of cervical spine Code(s): M47.812 - SPONDYLOSIS W/O MYELOPATHY OR RADICULOPATHY, CERVICAL REGION Status: Chronic (12) Dementia Code(s): F03.90 - UNSPECIFIED DEMENTIA WITHOUT BEHAVIORAL DISTURBANCE Status: Chronic (13) H/O prostatectomy Code(s): Z90.79 - ACQUIRED ABSENCE OF OTHER GENITAL ORGAN(S) Status: Chronic (14) Hypothyroidism Code(s): E03.9 - HYPOTHYROIDISM, UNSPECIFIED Status: Chronic (15) Demand ischemia Code(s): I24.8 - OTHER FORMS OF ACUTE ISCHEMIC HEART DISEASE Status: Acute (16) Left lower lobe pneumonia Code(s): J18.1 - LOBAR PNEUMONIA, UNSPECIFIED ORGANISM Status: Acute - Plan cont current plan of care, plan discussed w/ family, continue antibiotics, PT/OT , respiratory therapy * culture is negative, so will dc vancomycin * wbc is improving * continue rocephin and levaquin * renal function is now baseline * add duoneb * give one dose of lasix * DC ivf * discussed with family bedside * repeat labs tomorrow * medication reviewed as below * symptomatic treatment. Review of Systems - Review of Systems Constitutional: negative: fever, chills, sweats, weakness, malaise, other Eyes: negative: Pain, Vision Change, Conjunctivae Inflammation, Eyelid Inflammation, Redness, Other Respiratory: Cough, Shortness of Breath, SOB with Excertion. negative: Dry, Hemoptysis, Pleuritic Pain, Sputum, Wheezing Cardiovascular: negative: chest pain, palpitations, orthopnea, paroxysmal nocturnal dyspnea, edema, light headedness, other Gastrointestinal: negative: Nausea, Vomiting, Abdominal Pain, Diarrhea, Constipation, Melena, Hematochezia, Other Genitourinary: negative: Dysuria, Frequency, Incontinence, Hematuria, Retention , Other Musculoskeletal: negative: Neck Pain, Shoulder Pain, Arm Pain, Back Pain, Hand Pain, Leg Pain, Foot Pain, Other Skin: negative: Rash, Lesions, Tim, Bruising, Other - Medications/Allergies Allergies/Adverse Reactions: Allergies Allergy/AdvReac Type Severity Reaction Status Date / Time No Known Allergies Allergy Unverified 08/07/17 12:08 Medications: Current Medications Acetaminophen (Tylenol) 650 mg PO Q4H PRN PRN Reason: Headache/Fever or MIld Pain Last Admin: 08/16/17 15:26 Dose: 650 mg Hydrocodone Bitart/Acetaminophen ([place] 5/325) 1 tab PO Q4H PRN PRN Reason: Moderate Pain (4-6) Last Admin: 08/17/17 00:49 Dose: 1 tab Al Hydroxide/Mg Hydroxide (Maalox) 30 ml PO Q6H PRN PRN Reason: Heartburn or Indigestion Albuterol/Ipratropium (Duoneb) 3 ml NEB Q6H PRN PRN Reason: SOB &/or Wheezing Artificial Tears (Tears Naturale) 0 drop EA EYE PRN PRN PRN Reason: Dry Eyes Bisacodyl (Dulcolax) 10 mg [place] Q24H PRN PRN Reason: Constipation Cyclobenzaprine HCl (Flexeril) 5 mg PO Q8H PRN PRN Reason: Muscle Spasm Last Admin: 08/16/17 20:27 Dose: 5 mg Duloxetine HCl (Cymbalta) 40 mg PO DAILY [facility] Last Admin: 08/16/17 08:48 Dose: Not Given Famotidine (Pepcid) 20 mg PO DAILY [facility] Last Admin: 08/16/17 08:45 Dose: 20 mg Furosemide (Lasix) 40 mg SLOW IVP NOW [facility] Stop: 08/17/17 10:45 Guaifenesin (Robitussin Sf) 200 mg PO Q4H PRN PRN Reason: Cough Heparin Sodium (Porcine) (Heparin) 5,000 units SC BID [facility] Last Admin: 08/16/17 20:26 Dose: 5,000 units Hydralazine HCl (Apresoline) 10 mg SLOW IVP Q4H PRN PRN Reason: Systolic BP > 180 Ceftriaxone Sodium 1 gm/ (Sodium Chloride) 100 mls @ 200 mls/hr IVPB Q24HR [facility] Last Admin: 08/16/17 10:43 Dose: 100 mls Levofloxacin 750 mg/ Device 150 mls @ 100 mls/hr IVPB Q2DAYS [facility] Last Admin: 08/16/17 10:58 Dose: Not Given Levothyroxine Sodium (Synthroid) 50 mcg PO 0600 [facility] Last Admin: 08/17/17 06:25 Dose: Not Given Loperamide HCl (Imodium) 2 mg PO PRN PRN PRN Reason: Diarrhea/Loose Stools Loratadine (Claritin) 10 mg PO DAILYPRN PRN PRN Reason: Sinus Symptoms Magnesium Hydroxide (Milk Of Magnesium) 30 ml PO DAILYPRN PRN PRN Reason: Constipation Megestrol Acetate (Megace) 40 mg PO BID [facility] Last Admin: 08/16/17 20:26 Dose: 40 mg Mineral Oil/White Petrolatum (Eucerin Cream) 0 gm TOP BIDPRN PRN PRN Reason: Dry Skin Mirtazapine (Remeron) 7.5 mg PO HS [facility] Last Admin: 08/16/17 20:27 Dose: 7.5 mg Morphine Sulfate (Morphine) 2 mg SLOW IVP Q4H PRN PRN Reason: Pain Ondansetron HCl (Zofran Odt) 4 mg PO Q6H PRN PRN Reason: Nausea/Vomiting Ondansetron HCl (Zofran) 4 mg IVP Q6H PRN PRN Reason: Nausea/Vomiting Phenol (Chloraseptic [place] 180 Ml Bot) 0 ml PO PRN PRN PRN Reason: Sore Throat Saccharomyces Boulardii (Florastor) 250 mg PO DAILY [facility] Last Admin: 08/16/17 08:45 Dose: 250 mg Senna (Senokot) 2 tab PO HSPRN PRN PRN Reason: Constipation Senna/Docusate Sodium (Senokot S) 2 tab PO BID [facility] Last Admin: 08/16/17 20:27 Dose: 2 tab Sodium Chloride ([place] Nasal [place] 0.65%) 0 ml EA NARE QIDPRN PRN PRN Reason: Nasal Congestion Tamsulosin HCl (Flomax) 0.4 mg PO DAILY [facility] Last Admin: 08/16/17 08:45 Dose: 0.4 mg
[2017-08-17] MEDS ORDERED: Furosemide 40 MG/4 ML VIAL SLOW IVP SCH (08:45)
[2017-08-17] MEDS: Heparin 5,000 UNITS/ML VIAL SC SCH ×2 (09:28→20:40)
[2017-08-17] MEDS: Megestrol Acetate 40 MG TAB PO SCH ×2 (09:28→20:40)
[2017-08-17] MEDS: Famotidine 20 MG TAB PO SCH (09:28)
[2017-08-17] MEDS: Senokot S 8.6-50 MG TAB PO SCH ×2 (09:29→20:41)
[2017-08-17] MEDS: Tamsulosin HCl 0.4 MG CAP PO SCH (09:29)
[2017-08-17] MEDS: cefTRIAXone\\ROCEPHIN 1 GM in Sodium Chloride 0.9% 100 ML IVPB SCH (09:29)
[2017-08-17] MEDS: Saccharomyces boulardii 250 MG CAP PO SCH (09:29)
[2017-08-17] MEDS: Nitroglycerin 2% Ointment 1 INCH/1 GM Packet TOP SCH ×2 (13:33→20:41)
[2017-08-17] MEDS: Mirtazapine 15 MG TAB PO SCH (20:40)
[2017-08-18] MEDS ORDERED: Metoprolol Tartrate 25 MG TAB PO SCH (04:45)
[2017-08-18] MEDS: Nitroglycerin 2% Ointment 1 INCH/1 GM Packet TOP SCH ×3 (06:22→22:10)
[2017-08-18] MEDS: Levothyroxine Sodium 50 MCG TAB PO SCH (07:18)
[2017-08-18] MEDS: Heparin 5,000 UNITS/ML VIAL SC SCH ×2 (09:26→22:09)
[2017-08-18] MEDS: Famotidine 20 MG TAB PO SCH (09:26)
[2017-08-18] MEDS: Saccharomyces boulardii 250 MG CAP PO SCH (09:27)
[2017-08-18] MEDS: Tamsulosin HCl 0.4 MG CAP PO SCH (09:27)
[2017-08-18] MEDS: Megestrol Acetate 40 MG TAB PO SCH ×2 (09:27→22:09)
[2017-08-18] MEDS: Senokot S 8.6-50 MG TAB PO SCH ×2 (09:27→22:08)
--- NOTE | 2017-08-18 10:23 | PDOC.PN ---
- Subjective Encounter Start Date: 08/18/17 Encounter Start Time: 07:30 Patient seen and examined for sepsis. No overnight events - Objective Resuscitation Status: Resuscitation Status DNR:Do Not Resuscitate MAR Reviewed: Yes Vital Signs & Weight: Vital Signs (12 hours) Temp Pulse Resp BP Pulse Ox 08/18/17 07:37 99.5 F 110 H 19 171/79 H 100 08/18/17 04:00 97.9 F 116 H 28 H 140/80 100 Weight Weight 119 lb 8 oz I&O: 08/17/17 08/18/17 08/19/17 06:59 06:59 06:59 Intake Total 1152 930 Output Total 900 2700 Balance 252 -1770 Result Diagrams: 08/17/17 01:52 08/17/17 05:53 EKG Reviewed by me: Yes (nsr) Phys Exam - Physical Examination Constitutional: NAD HEENT: PERRLA, moist MMs, sclera anicteric Neck: no JVD, supple coarse sound bilateral Cardiovascular: RRR, no significant murmur, no rub Gastrointestinal: soft, non-tender, no distention, positive bowel sounds Musculoskeletal: no edema, pulses present Neurological: moves all 4 limbs Lymphatic: no nodes Psychiatric: normal affect Skin: no rash, normal turgor Dx/Plan (1) Acute worsening of stage 3 chronic kidney disease Code(s): N18.3 - CHRONIC KIDNEY DISEASE, STAGE 3 (MODERATE) Status: Acute (2) Dens fracture with routine healing Code(s): S12.100D - UNSP DISP FX OF 2ND CERVCAL VERT, SUBS FOR FX W ROUTN HEAL Status: Acute (3) Encephalopathy acute Code(s): G93.40 - ENCEPHALOPATHY, UNSPECIFIED Status: Acute (4) Hyperkalemia Code(s): E87.5 - HYPERKALEMIA Status: Acute (5) Hyponatremia Code(s): E87.1 - HYPO-OSMOLALITY AND HYPONATREMIA Status: Acute (6) Physical deconditioning Code(s): R53.81 - OTHER MALAISE Status: Acute (7) Sepsis with acute organ dysfunction Code(s): A41.9 - SEPSIS, UNSPECIFIED ORGANISM; R65.20 - SEVERE SEPSIS WITHOUT SEPTIC SHOCK Status: Acute (8) UTI (urinary tract infection) Status: Acute (9) Anemia, normocytic normochromic Code(s): D64.9 - ANEMIA, UNSPECIFIED Status: Chronic (10) Anxiety and depression Code(s): F41.9 - ANXIETY DISORDER, UNSPECIFIED; F32.9 - MAJOR DEPRESSIVE DISORDER, SINGLE EPISODE, UNSPECIFIED Status: Chronic (11) DJD (degenerative joint disease) of cervical spine Code(s): M47.812 - SPONDYLOSIS W/O MYELOPATHY OR RADICULOPATHY, CERVICAL REGION Status: Chronic (12) Dementia Code(s): F03.90 - UNSPECIFIED DEMENTIA WITHOUT BEHAVIORAL DISTURBANCE Status: Chronic (13) H/O prostatectomy Code(s): Z90.79 - ACQUIRED ABSENCE OF OTHER GENITAL ORGAN(S) Status: Chronic (14) Hypothyroidism Code(s): E03.9 - HYPOTHYROIDISM, UNSPECIFIED Status: Chronic (15) Demand ischemia Code(s): I24.8 - OTHER FORMS OF ACUTE ISCHEMIC HEART DISEASE Status: Acute (16) Left lower lobe pneumonia Code(s): J18.1 - LOBAR PNEUMONIA, UNSPECIFIED ORGANISM Status: Acute - Plan cont current plan of care, plan discussed w/ family, continue antibiotics, PT/OT , social work manager, respiratory therapy * continue rocephin and levaquin * discussed with daughter * will consult palliative care today * he may benefit from home with home hospice * medication reviewed as below * symptomatic treatment. * if home hospice arranged, will consider discharge may be tomorrow * continue current antibiotics Review of Systems - Review of Systems Other: unable to review due to encephalopathy - Medications/Allergies Allergies/Adverse Reactions: Allergies Allergy/AdvReac Type Severity Reaction Status Date / Time No Known Allergies Allergy Verified 08/18/17 00:04 Medications: Current Medications Acetaminophen (Tylenol) 650 mg PO Q4H PRN PRN Reason: Headache/Fever or MIld Pain Last Admin: 08/16/17 15:26 Dose: 650 mg Hydrocodone Bitart/Acetaminophen ([place] 5/325) 1 tab PO Q4H PRN PRN Reason: Moderate Pain (4-6) Last Admin: 08/17/17 13:33 Dose: 1 tab Al Hydroxide/Mg Hydroxide (Maalox) 30 ml PO Q6H PRN PRN Reason: Heartburn or Indigestion Albuterol/Ipratropium (Duoneb) 3 ml NEB Q6H PRN PRN Reason: SOB &/or Wheezing Artificial Tears (Tears Naturale) 0 drop EA EYE PRN PRN PRN Reason: Dry Eyes Bisacodyl (Dulcolax) 10 mg [place] Q24H PRN PRN Reason: Constipation Cyclobenzaprine HCl (Flexeril) 5 mg PO Q8H PRN PRN Reason: Muscle Spasm Last Admin: 08/16/17 20:27 Dose: 5 mg Duloxetine HCl (Cymbalta) 40 mg PO DAILY [facility] Last Admin: 08/18/17 09:26 Dose: 40 mg Famotidine (Pepcid) 20 mg PO DAILY [facility] Last Admin: 08/18/17 09:26 Dose: 20 mg Guaifenesin (Robitussin Sf) 200 mg PO Q4H PRN PRN Reason: Cough Heparin Sodium (Porcine) (Heparin) 5,000 units SC BID [facility] Last Admin: 08/18/17 09:26 Dose: 5,000 units Hydralazine HCl (Apresoline) 10 mg SLOW IVP Q4H PRN PRN Reason: Systolic BP > 180 Ceftriaxone Sodium 1 gm/ (Sodium Chloride) 100 mls @ 200 mls/hr IVPB Q24HR [facility] Last Admin: 08/17/17 09:29 Dose: 100 mls Levofloxacin 750 mg/ Device 150 mls @ 100 mls/hr IVPB Q2DAYS [facility] Last Admin: 08/18/17 09:18 Dose: 150 mls Levothyroxine Sodium (Synthroid) 50 mcg PO 0600 [facility] Last Admin: 08/18/17 07:18 Dose: 50 mcg Loperamide HCl (Imodium) 2 mg PO PRN PRN PRN Reason: Diarrhea/Loose Stools Loratadine (Claritin) 10 mg PO DAILYPRN PRN PRN Reason: Sinus Symptoms Magnesium Hydroxide (Milk Of Magnesium) 30 ml PO DAILYPRN PRN PRN Reason: Constipation Megestrol Acetate (Megace) 40 mg PO BID [facility] Last Admin: 08/18/17 09:27 Dose: 40 mg Metoprolol Tartrate (Lopressor) 25 mg PO BID [facility] Mineral Oil/White Petrolatum (Eucerin Cream) 0 gm TOP BIDPRN PRN PRN Reason: Dry Skin Mirtazapine (Remeron) 7.5 mg PO HS [facility] Last Admin: 08/17/17 20:40 Dose: 7.5 mg Morphine Sulfate (Morphine) 2 mg SLOW IVP Q4H PRN PRN Reason: Pain Nitroglycerin (Nitro-Bid 2% Ointment) 0.5 inch TOP Q8HR [facility] Last Admin: 08/18/17 06:22 Dose: 0.5 inch Ondansetron HCl (Zofran Odt) 4 mg PO Q6H PRN PRN Reason: Nausea/Vomiting Ondansetron HCl (Zofran) 4 mg IVP Q6H PRN PRN Reason: Nausea/Vomiting Phenol (Chloraseptic [place] 180 Ml Bot) 0 ml PO PRN PRN PRN Reason: Sore Throat Saccharomyces Boulardii (Florastor) 250 mg PO DAILY [facility] Last Admin: 08/18/17 09:27 Dose: 250 mg Senna (Senokot) 2 tab PO HSPRN PRN PRN Reason: Constipation Senna/Docusate Sodium (Senokot S) 2 tab PO BID [facility] Last Admin: 08/18/17 09:27 Dose: 2 tab Sodium Chloride ([place] Nasal [place] 0.65%) 0 ml EA NARE QIDPRN PRN PRN Reason: Nasal Congestion Tamsulosin HCl (Flomax) 0.4 mg PO DAILY [facility] Last Admin: 08/18/17 09:27 Dose: 0.4 mg
[2017-08-18] MEDS: cefTRIAXone\\ROCEPHIN 1 GM in Sodium Chloride 0.9% 100 ML IVPB SCH (11:02)
--- NOTE | 2017-08-18 12:47 | EKG ---
Test Reason : Blood Pressure : / mmHG Vent. Rate : 094 BPM Atrial Rate : 094 BPM P-R Int : 200 ms QRS Dur : 120 ms QT Int : 376 ms P-R-T Axes : 044 -46 066 degrees QTc Int : 470 ms Normal sinus rhythm Left anterior fascicular block Septal infarct , age undetermined Abnormal ECG When compared with ECG of 17-AUG-2017 05:31, (Unconfirmed) Vent. rate has decreased BY 51 BPM Septal infarct is now Present ST no longer depressed in Anterior leads Confirmed by SURJIT WIGGINS M.D. ([id number]), hospice liaison RICKEY HICKEY ([id number]) on 08/18/2017 12:46:53 PM Referred By: CLYDE Confirmed By:SURJIT WIGGINS M.D.
--- NOTE | 2017-08-18 12:47 | EKG ---
Test Reason : Blood Pressure : / mmHG Vent. Rate : 145 BPM Atrial Rate : 141 BPM P-R Int : 000 ms QRS Dur : 112 ms QT Int : 272 ms P-R-T Axes : 000 -48 066 degrees QTc Int : 422 ms Supraventricular tachycardia Left axis deviation Incomplete right bundle branch block Nonspecific ST abnormality Abnormal ECG When compared with ECG of 14-AUG-2017 20:42, (Unconfirmed) Sinus rhythm has replaced Junctional rhythm Vent. rate has increased BY 53 BPM T wave inversion no longer evident in Lateral leads Confirmed by SURJIT WIGGINS M.D. ([id number]), commercial production editor RICKEY HICKEY ([id number]) on 08/18/2017 12:46:53 PM Referred By: Confirmed By:SURJIT WIGGINS M.D.
[2017-08-18] MEDS: HYDROcodone/Acetaminophen 5/325 mg Tablet PO PRN (16:31)
[2017-08-18] MEDS: Metoprolol Tartrate 25 MG TAB PO SCH (22:08)
[2017-08-18] MEDS: Mirtazapine 15 MG TAB PO SCH (22:09)
[2017-08-19] MEDS: HYDROcodone/Acetaminophen 5/325 mg Tablet PO PRN ×2 (01:47→13:10)
[2017-08-19 04:52] LABS: #Eosinphils 0.1 thou/uL (0.0-0.7); #Lymphocytes 1.7 thou/uL (1.20-3.40); #Monocytes 1.2 thou/uL (0.11-0.59); #Neutrophils 10.4 thou/uL (1.40-6.50); %Basophils 0.2 % (0.0-1.0); %Eosinophils 0.6 % (0.0-10.0); %Lymphocytes 12.5 % (21.0-51.0); %Monocytes 8.9 % (0.0-10.0); %Neutrophils 77.6 % (42.0-75.0); Hemoglobin 10.1 g/dL (14.0-18.0); Mean Corpuscular HGB CONC 31.8 g/dL (32.0-36.0); Mean Corpuscular Hemoglobin 28.5 pg (27.0-31.0); Mean Corpuscular Volume 89.5 fl (80.0-94.0); Mean Platelet Volume 7.6 fL (7.4-10.4); Platelet Count 329 thou/uL (130-400); RBC Distribution Width 14.6 % (11.5-14.5); Red Blood Cell (RBC) Count 3.54 mill/uL (4.70-6.10); White Blood Cell (WBC) Count 13.4 thou/uL (4.8-10.8)
[2017-08-19 05:20] LABS: Anion Gap 18 mmol/L (10-20); BUN (Urea Nitrogen) 37 mg/dL (8.4-25.7); Calc. Creatinine Clearance 16 mL/min (70-130); Calcium 9.6 mg/dL (7.8-10.44); Carbon Dioxide 20 mmol/L (23-31); Chloride 107 mmol/L (98-107); Estimated GFR-MDRD 24; Glucose 104 mg/dL (83-110); Potassium 4.3 mmol/L (3.5-5.1); Sodium 141 mmol/L (136-145)
[2017-08-19] MEDS: Levothyroxine Sodium 50 MCG TAB PO SCH (07:10)
[2017-08-19] MEDS: Acetaminophen 325 MG TAB PO PRN (07:10)
[2017-08-19] MEDS: Nitroglycerin 2% Ointment 1 INCH/1 GM Packet TOP SCH (07:10)
[2017-08-19] MEDS: Tamsulosin HCl 0.4 MG CAP PO SCH (08:59)
[2017-08-19] MEDS: Saccharomyces boulardii 250 MG CAP PO SCH (08:59)
[2017-08-19] MEDS: Famotidine 20 MG TAB PO SCH (08:59)
[2017-08-19] MEDS: Metoprolol Tartrate 25 MG TAB PO SCH (08:59)
[2017-08-19] MEDS: Senokot S 8.6-50 MG TAB PO SCH (09:00)
[2017-08-19] MEDS: Megestrol Acetate 40 MG TAB PO SCH (09:00)
[2017-08-19] MEDS: cefTRIAXone\\ROCEPHIN 1 GM in Sodium Chloride 0.9% 100 ML IVPB SCH (09:01)
[2017-08-19] MEDS: Heparin 5,000 UNITS/ML VIAL SC SCH (09:17)
--- NOTE | 2017-08-19 09:49 | PDOC.PN ---
- Subjective Encounter Start Date: 08/19/17 Encounter Start Time: 08:00 Patient seen and examined for sepsis. No new complaints. No overnight events - Objective Resuscitation Status: Resuscitation Status DNR:Do Not Resuscitate MAR Reviewed: Yes Vital Signs & Weight: Vital Signs (12 hours) Temp Pulse Resp BP Pulse Ox 08/19/17 07:41 97.6 F 103 H 16 162/87 H 98 Weight Weight 119 lb 8 oz I&O: 08/18/17 08/19/17 08/20/17 06:59 06:59 06:59 Intake Total 930 450 Output Total 2700 750 Balance -1770 -300 Result Diagrams: 08/19/17 03:48 08/19/17 03:48 Phys Exam - Physical Examination Constitutional: NAD HEENT: PERRLA, moist MMs, sclera anicteric Neck: no JVD, supple cervical colla+ Respiratory: no wheezing, no rales, no rhonchi Cardiovascular: RRR, no significant murmur, no rub Gastrointestinal: soft, non-tender, no distention, positive bowel sounds Musculoskeletal: no edema, pulses present Neurological: moves all 4 limbs Lymphatic: no nodes Psychiatric: normal affect Skin: no rash, normal turgor Dx/Plan (1) Acute worsening of stage 3 chronic kidney disease Code(s): N18.3 - CHRONIC KIDNEY DISEASE, STAGE 3 (MODERATE) Status: Acute (2) Dens fracture with routine healing Code(s): S12.100D - UNSP DISP FX OF 2ND CERVCAL VERT, SUBS FOR FX W ROUTN HEAL Status: Acute (3) Encephalopathy acute Code(s): G93.40 - ENCEPHALOPATHY, UNSPECIFIED Status: Acute (4) Hyperkalemia Code(s): E87.5 - HYPERKALEMIA Status: Acute (5) Hyponatremia Code(s): E87.1 - HYPO-OSMOLALITY AND HYPONATREMIA Status: Acute (6) Physical deconditioning Code(s): R53.81 - OTHER MALAISE Status: Acute (7) Sepsis with acute organ dysfunction Code(s): A41.9 - SEPSIS, UNSPECIFIED ORGANISM; R65.20 - SEVERE SEPSIS WITHOUT SEPTIC SHOCK Status: Acute (8) UTI (urinary tract infection) Status: Acute (9) Anemia, normocytic normochromic Code(s): D64.9 - ANEMIA, UNSPECIFIED Status: Chronic (10) Anxiety and depression Code(s): F41.9 - ANXIETY DISORDER, UNSPECIFIED; F32.9 - MAJOR DEPRESSIVE DISORDER, SINGLE EPISODE, UNSPECIFIED Status: Chronic (11) DJD (degenerative joint disease) of cervical spine Code(s): M47.812 - SPONDYLOSIS W/O MYELOPATHY OR RADICULOPATHY, CERVICAL REGION Status: Chronic (12) Dementia Code(s): F03.90 - UNSPECIFIED DEMENTIA WITHOUT BEHAVIORAL DISTURBANCE Status: Chronic (13) H/O prostatectomy Code(s): Z90.79 - ACQUIRED ABSENCE OF OTHER GENITAL ORGAN(S) Status: Chronic (14) Hypothyroidism Code(s): E03.9 - HYPOTHYROIDISM, UNSPECIFIED Status: Chronic (15) Demand ischemia Code(s): I24.8 - OTHER FORMS OF ACUTE ISCHEMIC HEART DISEASE Status: Acute (16) Left lower lobe pneumonia Code(s): J18.1 - LOBAR PNEUMONIA, UNSPECIFIED ORGANISM Status: Acute - Plan cont current plan of care, continue antibiotics, health and social care teacher * on discharge will change to omnicef * medication reviewed as below * symptomatic treatment * will consider discharge to home with home hospice. Review of Systems - Review of Systems Other: unable to review due to dementia - Medications/Allergies Allergies/Adverse Reactions: Allergies Allergy/AdvReac Type Severity Reaction Status Date / Time No Known Allergies Allergy Verified 08/18/17 00:04 Medications: Current Medications Acetaminophen (Tylenol) 650 mg PO Q4H PRN PRN Reason: Headache/Fever or MIld Pain Last Admin: 08/19/17 07:10 Dose: 650 mg Hydrocodone Bitart/Acetaminophen ([place] 5/325) 1 tab PO Q4H PRN PRN Reason: Moderate Pain (4-6) Last Admin: 08/19/17 01:47 Dose: 1 tab Al Hydroxide/Mg Hydroxide (Maalox) 30 ml PO Q6H PRN PRN Reason: Heartburn or Indigestion Albuterol/Ipratropium (Duoneb) 3 ml NEB Q6H PRN PRN Reason: SOB &/or Wheezing Artificial Tears (Tears Naturale) 0 drop EA EYE PRN PRN PRN Reason: Dry Eyes Bisacodyl (Dulcolax) 10 mg [place] Q24H PRN PRN Reason: Constipation Cyclobenzaprine HCl (Flexeril) 5 mg PO Q8H PRN PRN Reason: Muscle Spasm Last Admin: 08/16/17 20:27 Dose: 5 mg Duloxetine HCl (Cymbalta) 40 mg PO DAILY [facility] Last Admin: 08/19/17 09:17 Dose: 40 mg Famotidine (Pepcid) 20 mg PO DAILY [facility] Last Admin: 08/19/17 08:59 Dose: 20 mg Guaifenesin (Robitussin Sf) 200 mg PO Q4H PRN PRN Reason: Cough Heparin Sodium (Porcine) (Heparin) 5,000 units SC BID [facility] Last Admin: 08/19/17 09:17 Dose: 5,000 units Hydralazine HCl (Apresoline) 10 mg SLOW IVP Q4H PRN PRN Reason: Systolic BP > 180 Ceftriaxone Sodium 1 gm/ (Sodium Chloride) 100 mls @ 200 mls/hr IVPB Q24HR [facility] Last Admin: 08/19/17 09:01 Dose: 100 mls Levofloxacin 750 mg/ Device 150 mls @ 100 mls/hr IVPB Q2DAYS [facility] Last Admin: 08/18/17 09:18 Dose: 150 mls Levothyroxine Sodium (Synthroid) 50 mcg PO 0600 [facility] Last Admin: 08/19/17 07:10 Dose: 50 mcg Loperamide HCl (Imodium) 2 mg PO PRN PRN PRN Reason: Diarrhea/Loose Stools Loratadine (Claritin) 10 mg PO DAILYPRN PRN PRN Reason: Sinus Symptoms Magnesium Hydroxide (Milk Of Magnesium) 30 ml PO DAILYPRN PRN PRN Reason: Constipation Megestrol Acetate (Megace) 40 mg PO BID [facility] Last Admin: 08/19/17 09:00 Dose: 40 mg Metoprolol Tartrate (Lopressor) 25 mg PO BID [facility] Last Admin: 08/19/17 08:59 Dose: 25 mg Mineral Oil/White Petrolatum (Eucerin Cream) 0 gm TOP BIDPRN PRN PRN Reason: Dry Skin Mirtazapine (Remeron) 7.5 mg PO [facility] Last Admin: 08/18/17 22:09 Dose: 7.5 mg Morphine Sulfate (Morphine) 2 mg SLOW IVP Q4H PRN PRN Reason: Pain Nitroglycerin (Nitro-Bid 2% Ointment) 0.5 inch TOP Q8HR [facility] Last Admin: 08/19/17 07:10 Dose: 0.5 inch Ondansetron HCl (Zofran Odt) 4 mg PO Q6H PRN PRN Reason: Nausea/Vomiting Ondansetron HCl (Zofran) 4 mg IVP Q6H PRN PRN Reason: Nausea/Vomiting Phenol (Chloraseptic [place] 180 Ml Bot) 0 ml PO PRN PRN PRN Reason: Sore Throat Saccharomyces Boulardii (Florastor) 250 mg PO DAILY [facility] Last Admin: 08/19/17 08:59 Dose: 250 mg Senna (Senokot) 2 tab PO HSPRN PRN PRN Reason: Constipation Senna/Docusate Sodium (Senokot S) 2 tab PO BID [facility] Last Admin: 08/19/17 09:00 Dose: 2 tab Sodium Chloride ([place] Nasal [place] 0.65%) 0 ml EA NARE QIDPRN PRN PRN Reason: Nasal Congestion Sodium Chloride (Flush - Normal Saline) 10 ml IVF Q12HR [facility] Last Admin: 08/19/17 09:00 Dose: 10 ml Sodium Chloride (Flush - Normal Saline) 10 ml IVF PRN PRN PRN Reason: Saline Flush Tamsulosin HCl (Flomax) 0.4 mg PO DAILY [facility] Last Admin: 08/19/17 08:59 Dose: 0.4 mg
--- NOTE | 2017-08-19 10:56 | DIS ---
DATE OF ADMISSION: 08/15/2017 DATE OF DISCHARGE: 08/19/2017 PRIMARY CARE PHYSICIAN: Selene Huertas M.D. DISCHARGE DISPOSITION: Home with home hospice. PRIMARY DISCHARGE DIAGNOSES: Acute on chronic kidney failure, baseline chronic kidney disease stage 3, acute encephalopathy, demand ischemia of myocardium, urinary tract infection, left lower lobe pneu monia, sepsis with acute organ dysfunction, hyperkalemia and hyponatremia. SECONDARY DISCHARGE DIAGNOSES: Hypothyroidism, history of prostatectomy, degenerative joint disease of cervical spine, Alzheimer's dementia, anxiety and depression, normocytic normochromic anemia, phys ical deconditioning, dens fracture of cervical spine, chronic kidney disease stage 3. PRIMARY PROCEDURE/OPERATION: None. RADIOLOGICAL INVESTIGATION: Chest x-ray showed left lower lobe infiltration. Abdomen and pelvis CT scan was unremarkable. Chest x-ray showed left lower lobe infiltration. SIGNIFICANT LABORATORY DATA: WBC 13.4, hemoglobin 10.1, platelet 329. Sodium 141, potassium 4.3, BU N 37, creatinine 2.61, calcium 9.6. LFT normal. Troponin 0.075. Urinalysis suggestive of UTI. Uri ne culture negative. Blood culture negative. DISCHARGE MEDICATIONS: Omnicef 300 mg p.o. daily for 7 more days, Tylenol 650 mg q.6 hourly p.r.n., Flexeril 5 mg q.8 hourly p.r.n., Cymbalta 40 mg p.o. daily, Pepcid 20 mg p.o. daily, Synthroid 50 mcg p.o. daily, Megace 40 mg p.o. b.i.d., Toprol-XL 25 mg p.o. b.i.d., Remeron 7.5 mg p.o. at bedtime, S enokot 2 tablets p.o. b.i.d. and Flomax 0.4 mg p.o. daily. CONTRAINDICATIONS: None. CODE STATUS: DNR. INPATIENT CONSULTANTS: None. ALLERGIES: No known drug allergy. DISCHARGE PLAN: Post hospital, patient is discharged home with home hospice. Subsequently, patient will follow up with primary care physician. HOSPITAL COURSE: An 81-year-old male who had mechanical fall at home and subsequently he was admitte d recently under trauma team. At that time, patient was diagnosed with scalp laceration on the right side required suturing and CT cervical spine showed dens fracture of cervical spine. Neurosurgeon e valuated that patient and did not require any intervention other than cervical collar and subsequentl y patient was discharged to rehabilitation. At rehab facility, patient was disoriented and he was palma ving hallucination, delusion. He was sent back to emergency room for evaluation. He was found with acute on chronic kidney failure. He was dehydrated. His urinalysis was consistent with UTI, which w as related with indwelling Rendon catheter which was placed during previous admission before this admi ssion. Unfortunately, urine culture was not obtained on admission and that is why culture was not av ailable, but blood culture was negative. The patient also had chest x-ray which showed left lower lo be infiltration. The patient was treated with broad spectrum antibiotic therapy and IV fluid. When renal function up to his baseline, we discontinued IV fluid. The patient also developed signs of vol ume overload and that is why he required transfer to telemetry floor. We gave him Lasix and patient was stabilized. This patient does not want to do aggressive care and patient's daughter agreed with hospice care and that is why we transferred him to medical floor. Code status was changed to DNR. P atient was evaluated by hospice team and they approved for home hospice care. All necessary arrangem ent is done by test case developer and hospice team. The patient is seen and examined at bedside today. His long-term prognosis is very poor and we are d ischarging with above-mentioned medications. Please see my progress note from today for further details.
[2017-08-19 11:44] VITALS: BP 167/89; TEMP 97.7
== END 2017-08-19 14:04 | disposition hospice, home (50) | DRG 698 ==
LOC: ERS 20:32 → T4-B 23:07 → OBSVTOIN 08-15 02:19 → 2NO 08-17 06:04 → T4-A 08-18 20:08
PROVIDERS: ADMIT Internal Medicine; ATTEND Internal Medicine
DX: T83.511A Infection and inflammatory reaction due to indwelling urethral catheter, initial encounter (principal); G93.41 Metabolic encephalopathy; A41.9 Sepsis, unspecified organism; R65.20 Severe sepsis without septic shock; J18.9 Pneumonia, unspecified organism; E87.1 Hypo-osmolality and hyponatremia; I24.8 Other forms of acute ischemic heart disease; N17.9 Acute kidney failure, unspecified; F05 Delirium due to known physiological condition; E87.2 Acidosis; Z66 Do not resuscitate; E87.5 Hyperkalemia; D63.1 Anemia in chronic kidney disease; F41.9 Anxiety disorder, unspecified; F32.9 Major depressive disorder, single episode, unspecified; M47.812 Spondylosis without myelopathy or radiculopathy, cervical region; Z90.79 Acquired absence of other genital organ(s); E03.9 Hypothyroidism, unspecified; E86.0 Dehydration; N40.0 Benign prostatic hyperplasia without lower urinary tract symptoms; S12.112D Nondisplaced Type II dens fracture, subsequent encounter for fracture with routine healing; G30.9 Alzheimer's disease, unspecified; F02.80 Dementia in other diseases classified elsewhere, unspecified severity, without behavioral disturbance, psychotic disturbance, mood disturbance, and anxiety; I12.9 Hypertensive chronic kidney disease with stage 1 through stage 4 chronic kidney disease, or unspecified chronic kidney disease; N18.3 Chronic kidney disease, stage 3 (moderate)
CPT/HCPCS: 36415; 36416; 71045; 74176; 80048; 80069; 80076; 80202; 81003; 81015; 83605; 83690; 83735; 84484; 85025; 87040; 93005; 93010; 96361; 96365; 96375; A4216; G8978-GP-CN; G8979-GP-CK; G8987-GO-CM; G8988-GO-CJ; G8996-GN-CM; G8997-GN-CM; J0360; J0696; J1644; J1940; J1956; J2270; J3370; J7050; S0179